=== PATIENT | male | born 1940 | race Caucasian/White ===

== ENCOUNTER 2017-03-06 21:59 | Emergency (ER) | payer MEDICARE, MEDICAID ==
[~2017-03-06] VITALS: Ht 180.3 cm; Wt 110.2 kg
[~2017-03-06 21:59] MED LIST: AMLO10TA2 PO; ASPI81CH43 PO; CARV3.1213 OR; CLOP75TA41 PO; FENO134C PO; HYDR25TA4 PO; LOSA25TA9 PO; LOVA40TA72 PO; OMEP20TA44 PO
[2017-03-07 00:48] VITALS: BP 183/96
[2017-03-07] MEDS ORDERED: GENTAMICIN OPTH sol 0.3% 5ml LEFTEYE ONE (01:00)
[2017-03-07] MEDS ORDERED: TETRACAINE HCL 0.5% OPTH(EYE) SOLN 4ML EACHEYE ONE (01:00)
[2017-03-07] MEDS ORDERED: FLUORESCEIN SOD 1 MG TEST STRIP LEFTEYE ONE (01:00)
== END 2017-03-07 01:50 | disposition home or self-care (01) ==
LOC: ER 21:59
DX: T15.02XA Foreign body in cornea, left eye, initial encounter (principal); S05.02XA Injury of conjunctiva and corneal abrasion without foreign body, left eye, initial encounter; M77.52 Other enthesopathy of left foot and ankle; X58.XXXA Exposure to other specified factors, initial encounter; Y93.89 Activity, other specified; Y99.8 Other external cause status; Y92.89 Other specified places as the place of occurrence of the external cause
CPT/HCPCS: 73630

== ENCOUNTER 2017-04-21 20:25 | Emergency (ER) | payer MEDICARE, MEDICAID ==
[~2017-04-21] VITALS: Ht 180.3 cm; Wt 106.6 kg
[~2017-04-21 20:25] MED LIST changes: +CAR3125T OR; -CARV3.1213 OR
[2017-04-22 00:27] VITALS: BP 119/80
[2017-04-22] MEDS ORDERED: TETANUS-DIPTH-ACEL PERTUSSIS 0.5ML SYRG IM ONE (00:45)
[2017-04-22] MEDS ORDERED: cefTRIAXone SOD 1,000 MG VL IM ONE (00:45)
== END 2017-04-22 01:03 | disposition home or self-care (01) ==
LOC: ER 20:28
DX: S61.431A Puncture wound without foreign body of right hand, initial encounter (principal); L03.113 Cellulitis of right upper limb; I10 Essential (primary) hypertension; W22.8XXA Striking against or struck by other objects, initial encounter; Y93.89 Activity, other specified; Y99.8 Other external cause status; Y92.89 Other specified places as the place of occurrence of the external cause
CPT/HCPCS: 90471; 90715; 96372; 99284; J0696

== ENCOUNTER → 2018-06-04 | Outpatient (CLI) | payer MEDICARE, MEDICAID ==
[~2018-06-04] MED LIST changes: +IOHEXOL 350 MG/ML 100ML IJ ONE
[2018-06-04 11:50] VITALS: BP 159/94
[2018-06-04 12:45] VITALS: BP 161/78
[2018-06-04 16:50] LABS: Albumin 3.9 g/dL (3.4-5.0); BUN/Creatinine Ratio 21.7; Bilirubin, Total 0.9 mg/dL (0.2-1.0); Calcium 8.8 mg/dL (8.5-10.1); Total Protein 7.4 g/dL (6.4-8.2)
[2018-06-04 16:53] LABS: Free T4 (Free Thyroxine) 0.78 ng/dL (0.89-1.76); Prostate Specific Antigen 0.68 ng/mL (0.0-4.0)
[2018-06-04 17:03] LABS: Basophils # (auto) 0 uL; Basophils % (auto) 0.8 % (0.0-2.0); Eosinophils # (auto) 0.1 uL; Eosinophils % (auto) 2.3 % (0.0-7.0); Hematocrit 44.3 % (41.0-53.0); Hemoglobin 15.2 g/dL (13.5-17.5); Lymphocytes # (auto) 1.6 uL; Lymphocytes % (auto) 27.1 % (10.0-50.0); Mean Corpuscular Hemoglobin 31.3 pg (28.0-32.0); Mean Corpuscular Hgb Conc. 34.4 g/dL (32.0-36.0); Mean Corpuscular Volume 90.8 fL (80.0-100.0); Monocytes # (auto) 0.5 uL; Monocytes % (auto) 8.8 % (0.0-12.0); Neutrophils # (auto) 3.6 uL; Nucleated Red Blood Cells % 0.2 %; Platelet Count (auto) 158 10^3/uL (140-450); Red Blood Cells 4.88 10^6/uL (4.5-5.90); Red Cell Distribution Width 14.1 % (11.8-14.3); White Blood Cell 5.9 10^3/uL (4.4-10.8)
== END | disposition home or self-care (01) ==
LOC: Rad HDHVI 11:38
PROVIDERS: ATTEND Internal Medicine Cardiovascular Disease
DX: Z00.01 Encounter for general adult medical examination with abnormal findings (principal); I51.7 Cardiomegaly; E29.1 Testicular hypofunction; C61 Malignant neoplasm of prostate; E03.9 Hypothyroidism, unspecified; E11.9 Type 2 diabetes mellitus without complications; E55.9 Vitamin D deficiency, unspecified; D51.9 Vitamin B12 deficiency anemia, unspecified; N39.0 Urinary tract infection, site not specified; Z79.82 Long term (current) use of aspirin; Z79.899 Other long term (current) drug therapy
CPT/HCPCS: 36415; 71260; 80053; 80061; 82306; 82565; 82607; 83036; 84153; 84403; 84439; 84443; 85025; G0463; Q9967

== ENCOUNTER → 2018-06-18 | Outpatient (CLI) | payer MEDICARE, MEDICAID ==
[~2018-06-18] MED LIST changes: +AMLO10TA12 PO; -AMLO10TA2 PO; -IOHEXOL 350 MG/ML 100ML IJ ONE; +LOSA25TA40 PO; -LOSA25TA9 PO
== END | disposition home or self-care (01) ==
LOC: Rad HDHVI 10:04
PROVIDERS: ATTEND Internal Medicine Cardiovascular Disease
DX: I35.1 Nonrheumatic aortic (valve) insufficiency (principal); I10 Essential (primary) hypertension; E11.9 Type 2 diabetes mellitus without complications; E78.00 Pure hypercholesterolemia, unspecified
CPT/HCPCS: 93306; 93880

== ENCOUNTER → 2018-06-27 | Outpatient (CLI) | payer MEDICARE, MEDICAID ==
[~2018-06-27] VITALS: Ht 180.3 cm; Wt 108.0 kg
[~2018-06-27] MED LIST changes: -AMLO10TA12 PO; +AMLO10TA2 PO; -LOSA25TA40 PO; +LOSA25TA9 PO
== END | disposition home or self-care (01) ==
LOC: Rad HDHVI 08:20
PROVIDERS: ATTEND Internal Medicine Cardiovascular Disease
DX: E78.00 Pure hypercholesterolemia, unspecified (principal); I12.9 Hypertensive chronic kidney disease with stage 1 through stage 4 chronic kidney disease, or unspecified chronic kidney disease; E11.22 Type 2 diabetes mellitus with diabetic chronic kidney disease; N18.2 Chronic kidney disease, stage 2 (mild); E78.5 Hyperlipidemia, unspecified; Z79.899 Other long term (current) drug therapy; Z79.82 Long term (current) use of aspirin
CPT/HCPCS: 78452; 93017; 96374; A9500

== ENCOUNTER → 2019-01-26 | Outpatient (CLI) | payer MEDICARE, MEDICAID ==
[~2019-01-26] MED LIST changes: +AMLO10TA12 PO; -AMLO10TA2 PO; +LOSA25TA40 PO; -LOSA25TA9 PO
[2019-01-26 12:12] LABS: Urine Blood Negative /uL (Negative); Urine Specific Gravity 1.012 (1.001-1.035)
[2019-01-26 12:28] LABS: Potassium 4.5 mmol/L (3.5-5.1)
[2019-01-26 12:36] LABS: Free T4 (Free Thyroxine) 0.93 ng/dL (0.89-1.76); Prostate Specific Antigen 0.62 ng/mL (0.0-4.0)
[2019-01-26 12:41] LABS: Albumin 3.5 g/dL (3.4-5.0); BUN/Creatinine Ratio 21.3; Bilirubin, Total 0.4 mg/dL (0.2-1.0); Calcium 9.1 mg/dL (8.5-10.1); Total Protein 7.1 g/dL (6.4-8.2)
[2019-01-26 13:15] LABS: Basophils # (auto) 0.1 uL; Eosinophils # (auto) 0.1 uL; Eosinophils % (auto) 2.8 % (0.0-7.0); Hematocrit 41.8 % (41.0-53.0); Hemoglobin 14.3 g/dL (13.5-17.5); Lymphocytes # (auto) 1.3 uL; Lymphocytes % (auto) 25.9 % (10.0-50.0); Mean Corpuscular Hemoglobin 29.9 pg (28.0-32.0); Mean Corpuscular Hgb Conc. 34.2 g/dL (32.0-36.0); Mean Corpuscular Volume 87.4 fL (80.0-100.0); Monocytes # (auto) 0.4 uL; Monocytes % (auto) 7.6 % (0.0-12.0); Neutrophils # (auto) 3.2 uL; Neutrophils % (auto) 62.7 % (37.0-80.0); Nucleated Red Blood Cells % 0.8 %; Platelet Count (auto) 192 10^3/uL (140-450); Red Blood Cells 4.78 10^6/uL (4.5-5.90); Red Cell Distribution Width 13.6 % (11.8-14.3)
== END | disposition home or self-care (01) ==
LOC: LAB 08:08
PROVIDERS: ATTEND Internal Medicine Cardiovascular Disease
DX: E55.9 Vitamin D deficiency, unspecified (principal); E03.9 Hypothyroidism, unspecified; E11.9 Type 2 diabetes mellitus without complications; E29.1 Testicular hypofunction; D51.9 Vitamin B12 deficiency anemia, unspecified; N39.0 Urinary tract infection, site not specified; C61 Malignant neoplasm of prostate
CPT/HCPCS: 36415; 80053; 80061; 81003; 82306; 82607; 83036; 84153; 84403; 84439; 84443; 85025

== ENCOUNTER → 2019-04-28 | Outpatient (CLI) | payer MEDICARE, MEDICAID | END | disposition home or self-care (01) | LOC: LAB 10:30 | PROVIDERS: ATTEND Internal Medicine Cardiovascular Disease | DX: E11.9 Type 2 diabetes mellitus without complications (principal) | CPT/HCPCS: 36415; 83036 ==

== ENCOUNTER → 2019-08-12 | Outpatient (CLI) | payer MEDICARE, MEDICAID ==
[~2019-08-12] MED LIST changes: -AMLO10TA12 PO; +AMLO10TA13 PO; +LOSA25TA38 PO; -LOSA25TA40 PO
== END | disposition home or self-care (01) ==
LOC: Rad HDHVI 14:58
PROVIDERS: ATTEND Internal Medicine Cardiovascular Disease
DX: I08.0 Rheumatic disorders of both mitral and aortic valves (principal); I42.1 Obstructive hypertrophic cardiomyopathy; I11.9 Hypertensive heart disease without heart failure
CPT/HCPCS: 93306

== ENCOUNTER → 2019-08-19 | Outpatient (CLI) | payer MEDICARE, MEDICAID ==
[~2019-08-19] VITALS: Ht 175.3 cm; Wt 115.7 kg
[~2019-08-19] MED LIST changes: +ADENOSINE 90 MG/30 ML INJ IV ONE; +ADENOSINE 97 MG in GIVE UN-DILUTED 0 ML IV ONE
== END | disposition home or self-care (01) ==
LOC: Rad HDHVI 13:19
PROVIDERS: ATTEND Internal Medicine Cardiovascular Disease
DX: I10 Essential (primary) hypertension (principal); E11.9 Type 2 diabetes mellitus without complications
CPT/HCPCS: 78452; 93005; 96374; 96375; A9500; J0153

== ENCOUNTER → 2020-02-19 | Outpatient (CLI) | payer MEDICARE, MEDICAID ==
[~2020-02-19] MED LIST changes: -ADENOSINE 90 MG/30 ML INJ IV ONE; -ADENOSINE 97 MG in GIVE UN-DILUTED 0 ML IV ONE
== END | disposition home or self-care (01) ==
LOC: Rad HDHVI 12:32
PROVIDERS: ATTEND Internal Medicine Cardiovascular Disease
DX: M47.816 Spondylosis without myelopathy or radiculopathy, lumbar region (principal); M47.817 Spondylosis without myelopathy or radiculopathy, lumbosacral region; M48.061 Spinal stenosis, lumbar region without neurogenic claudication; M43.16 Spondylolisthesis, lumbar region; M48.07 Spinal stenosis, lumbosacral region; K57.30 Diverticulosis of large intestine without perforation or abscess without bleeding; N40.0 Benign prostatic hyperplasia without lower urinary tract symptoms; M16.0 Bilateral primary osteoarthritis of hip
CPT/HCPCS: 72131; 72192

== ENCOUNTER → 2020-04-11 | Outpatient (CLI) | payer MEDICARE, MEDICAID ==
[~2020-04-11] MED LIST changes: +METF-370 PO; +POM PO; +SITA100T7 PO
[2020-04-11 09:45] VITALS: BP 125/77
--- NOTE | 2020-04-11 09:45 | NUR ---
PATIENT INTO CLINIC FOR SCHEDULED PREOP APPT, AAOx4, AMBULATORY, BREATHING EVEN AND UNLABORED.
[2020-04-11 10:12] VITALS: BP 138/69
--- NOTE | 2020-04-11 10:12 | NUR ---
Pre-Op Discharge Summary: See e-MAR for any medications given for this visit. Pre-op orders received and carried out per MD of EKG, LABS and chest xrays. Patient given a copy of EKG with instructions to go to [facility] out patient for further follow up care.
[2020-04-11 12:20] LABS: Urine Blood Negative /uL (Negative); Urine Specific Gravity 1.019 (1.001-1.035)
[2020-04-11 12:22] LABS: Basophils # (auto) 0 10 ^3/uL (0-0.2); Mean Corpuscular Hemoglobin 35.1 pg (28.0-32.0); Monocytes # (auto) 0.5 10 ^3/uL (0-1.3); Neutrophils # (auto) 3.4 10 ^3/uL (1.6-8.6); White Blood Cell 5.6 10^3/uL (4.4-10.8)
[2020-04-11 12:24] LABS: Basophils % (auto) 0.6 % (0.0-2.0); Eosinophils # (auto) 0.2 10 ^3/uL (0-0.8); Eosinophils % (auto) 2.7 % (0.0-7.0); Hematocrit 40.8 % (41.0-53.0); Hemoglobin 14.7 g/dL (13.5-17.5); Lymphocytes # (auto) 1.5 10 ^3/uL (0.4-5.4); Lymphocytes % (auto) 27.2 % (10.0-50.0); Mean Corpuscular Volume 97.4 fL (80.0-100.0); Monocytes % (auto) 8.4 % (0.0-12.0); Neutrophils % (auto) 61.1 % (37.0-80.0); Nucleated Red Blood Cells % 0.4 %; Platelet Count (auto) 198 10^3/uL (140-450); Red Blood Cells 4.19 10^6/uL (4.5-5.90); Red Cell Distribution Width 14.6 % (11.8-14.3)
[2020-04-11 12:32] LABS: INR 0.98 (0.9-1.15); Partial Thromboplastin Time 25.3 sec (23.64-32.05)
[2020-04-11 12:40] LABS: Free T4 (Free Thyroxine) 0.99 ng/dL (0.89-1.76); Prostate Specific Antigen 0.83 ng/mL (0.0-4.0)
[2020-04-11 12:41] LABS: Potassium 4.5 mmol/L (3.5-5.1)
[2020-04-11 13:07] LABS: Albumin 3.8 g/dL (3.4-5.0); BUN/Creatinine Ratio 19.4; Bilirubin, Total 0.7 mg/dL (0.2-1.0); Calcium 9.5 mg/dL (8.5-10.1); Total Protein 7.3 g/dL (6.4-8.2)
== END | disposition home or self-care (01) ==
LOC: Rad HDHVI 09:22
PROVIDERS: ATTEND Internal Medicine Cardiovascular Disease
DX: Z01.818 Encounter for other preprocedural examination (principal); I70.0 Atherosclerosis of aorta; I11.0 Hypertensive heart disease with heart failure; I50.9 Heart failure, unspecified; M25.551 Pain in right hip; N40.0 Benign prostatic hyperplasia without lower urinary tract symptoms
CPT/HCPCS: 36415; 71046; 80053; 80061; 81003; 82306; 82607; 83036; 84153; 84403; 84439; 84443; 85025; 85610; 85730; 93005; G0463

== ENCOUNTER → 2020-04-12 | Emergency (ER) | payer MEDICARE, MEDICAID ==
[~2020-04-12] VITALS: Ht 180.3 cm; Wt 99.3 kg
[~2020-04-12] MED LIST changes: -AMLO10TA13 PO; -ASPI81CH43 PO; -CAR3125T OR; -CLOP75TA41 PO; -FENO134C PO; -HYDR25TA4 PO; +IOHEXOL 350 MG/ML 100ML IJ ONE; -LOSA25TA38 PO; -LOVA40TA72 PO; +MORPHINE SULF INJ 2 MG/ML SYRINGE 1ML ONE; +MORPHINE SULFATE 4 MG/ML SYR/VIAL IV ONE; -OMEP20TA44 PO; +ONDANSETRON HCL 4 MG/2 ML VIAL IV ONE; +ONDANSETRON HCL 4 MG/2 ML VIAL ONE; +SODIUM CHLORIDE 0.9% 1,000 ML IV ONE
[2020-04-12 19:57] LABS: Basophils # (auto) 0 10 ^3/uL (0-0.2); Basophils % (auto) 0.5 % (0.0-2.0); Eosinophils # (auto) 0.1 10 ^3/uL (0-0.8); Eosinophils % (auto) 1.5 % (0.0-7.0); Hematocrit 43.9 % (41.0-53.0); Lymphocytes # (auto) 1.7 10 ^3/uL (0.4-5.4); Lymphocytes % (auto) 21.5 % (10.0-50.0); Mean Corpuscular Hemoglobin 30.9 pg (28.0-32.0); Mean Corpuscular Hgb Conc. 34.3 g/dL (32.0-36.0); Mean Corpuscular Volume 90.1 fL (80.0-100.0); Monocytes # (auto) 0.7 10 ^3/uL (0-1.3); Monocytes % (auto) 8.6 % (0.0-12.0); Neutrophils # (auto) 5.5 10 ^3/uL (1.6-8.6); Neutrophils % (auto) 67.9 % (37.0-80.0); Nucleated Red Blood Cells % 0.1 %; Platelet Count (auto) 180 10^3/uL (140-450); Red Blood Cells 4.87 10^6/uL (4.5-5.90); Red Cell Distribution Width 14.8 % (11.8-14.3); White Blood Cell 8.1 10^3/uL (4.4-10.8)
[2020-04-12 20:12] LABS: INR 1.03 (0.9-1.15)
[2020-04-12 20:15] LABS: Albumin 3.8 g/dL (3.4-5.0); Anion Gap 8 (5-15); Blood Urea Nitrogen 31 mg/dL (7-18); Calcium 8.7 mg/dL (8.5-10.1); Carbon Dioxide 22 mmol/L (21-32); Chloride 115 mmol/L (98-107); Glucose 154 mg/dL (74-106); Magnesium 2.2 mg/dL (1.6-2.6); Potassium 4.2 mmol/L (3.5-5.1); Sodium 145 mmol/L (136-145)
[2020-04-12 20:17] LABS: Alanine Aminotransferase 44 U/L (16-61); Aspartate Aminotransferase 29 U/L (15-37); BUN/Creatinine Ratio 23.7; GFR African American 68 mL/min; GFR Non-African American 56 mL/min
[2020-04-12 20:22] LABS: Alkaline Phosphatase 89 U/L (45-117); Bilirubin, Total 0.4 mg/dL (0.2-1.0); Total Protein 7.2 g/dL (6.4-8.2)
[2020-04-12 23:54] VITALS: BP 146/76
== END | disposition short-term general hospital (02) ==
LOC: EDUNIT# 19:25 → ER 19:30 → EDBD 19:30
DX: S12.200A Unspecified displaced fracture of third cervical vertebra, initial encounter for closed fracture (principal); E11.9 Type 2 diabetes mellitus without complications; I10 Essential (primary) hypertension; I25.2 Old myocardial infarction; X58.XXXA Exposure to other specified factors, initial encounter; Y93.89 Activity, other specified; Y92.89 Other specified places as the place of occurrence of the external cause; Y99.8 Other external cause status
CPT/HCPCS: 36415; 70450; 71250; 71275; 72125; 80053; 83735; 83880; 84443; 84484; 85025; 85379; 85610; 85730; 93971; 96361; 96374; 96375; 96376; 99285; J2270; J2405; J7030; Q9967; 93005

== ENCOUNTER → 2020-04-25 | Outpatient (CLI) | payer MEDICARE, MEDICAID ==
[~2020-04-25] MED LIST changes: -IOHEXOL 350 MG/ML 100ML IJ ONE; -MORPHINE SULF INJ 2 MG/ML SYRINGE 1ML ONE; -MORPHINE SULFATE 4 MG/ML SYR/VIAL IV ONE; -ONDANSETRON HCL 4 MG/2 ML VIAL IV ONE; -ONDANSETRON HCL 4 MG/2 ML VIAL ONE; -SODIUM CHLORIDE 0.9% 1,000 ML IV ONE
== END | disposition home or self-care (01) ==
LOC: Rad HDHVI 13:56
PROVIDERS: ATTEND Internal Medicine Cardiovascular Disease
DX: I50.42 Chronic combined systolic (congestive) and diastolic (congestive) heart failure (principal); R06.02 Shortness of breath
CPT/HCPCS: 93306

== ENCOUNTER → 2020-05-09 | Outpatient (CLI) | payer MEDICARE, MEDICAID ==
[~2020-05-09] VITALS: Ht 182.9 cm; Wt 97.5 kg
[2020-05-09 08:40] VITALS: BP 137/65
[2020-05-09 10:07] VITALS: BP 136/73
[2020-05-09 11:57] LABS: Basophils # (auto) 0 10 ^3/uL (0-0.2); Basophils % (auto) 0.7 % (0.0-2.0); Eosinophils # (auto) 0.1 10 ^3/uL (0-0.8); Eosinophils % (auto) 2.6 % (0.0-7.0); Hematocrit 33.8 % (41.0-53.0); Hemoglobin 13.6 g/dL (13.5-17.5); Lymphocytes % (auto) 26.9 % (10.0-50.0); Mean Corpuscular Hemoglobin 41.7 pg (28.0-32.0); Mean Corpuscular Volume 103.5 fL (80.0-100.0); Monocytes # (auto) 0.4 10 ^3/uL (0-1.3); Monocytes % (auto) 10.7 % (0.0-12.0); Neutrophils # (auto) 2.2 10 ^3/uL (1.6-8.6); Neutrophils % (auto) 59.1 % (37.0-80.0); Nucleated Red Blood Cells % 0.2 %; Platelet Count (auto) 163 10^3/uL (140-450); Red Blood Cells 3.26 10^6/uL (4.5-5.90); Red Cell Distribution Width 14.5 % (11.8-14.3); White Blood Cell 3.7 10^3/uL (4.4-10.8)
[2020-05-09 11:59] LABS: Mean Corpuscular Hgb Conc. 40.3 g/dL (32.0-36.0)
[2020-05-09 12:06] LABS: BUN/Creatinine Ratio 21.7; Calcium 9.1 mg/dL (8.5-10.1); Potassium 4.8 mmol/L (3.5-5.1)
[2020-05-09 12:17] LABS: INR 1.02 (0.9-1.15); Partial Thromboplastin Time 25.8 sec (23.64-32.05)
== END | disposition home or self-care (01) ==
LOC: Rad HDHVI 09:14
PROVIDERS: ATTEND Internal Medicine Cardiovascular Disease
DX: Z01.812 Encounter for preprocedural laboratory examination (principal); I10 Essential (primary) hypertension; D64.9 Anemia, unspecified; R79.1 Abnormal coagulation profile; I51.7 Cardiomegaly; I70.0 Atherosclerosis of aorta; J98.11 Atelectasis; M25.78 Osteophyte, vertebrae; M47.814 Spondylosis without myelopathy or radiculopathy, thoracic region
CPT/HCPCS: 36415; 71046; 80048; 85025; 85610; 85730; 93005; G0463

== ENCOUNTER 2020-05-12 07:16 | Day surgery (SDC) | payer MEDICARE, MEDICAID ==
[~2020-05-12 07:16] MED LIST changes: -SITA100T7 PO
[2020-05-12] MEDS ORDERED: ANGIOMAX 250 MG VIAL IV ONE (09:29)
[2020-05-12] MEDS ORDERED: fentaNYL CITRATE 100 MCG/2 ML VL ONE (09:29)
[2020-05-12] MEDS ORDERED: MIDAZOLAM HCL 1MG/1ML-2 ML VIAL ONE (09:29)
[2020-05-12] MEDS ORDERED: SODIUM CHL 0.9% 0 ML ONE (09:30)
[2020-05-12] MEDS ORDERED: LIDOCAINE 2%HCL (LOCAL ANESTH.) INJ 20ML MDV ONE (09:41)
[2020-05-12] MEDS ORDERED: IOHEXOL 350 MG/ML 100ML IJ ONE (09:41)
[2020-05-12] MEDS ORDERED: HYDROcodone-ACET 5/325MG TAB PO PRN (11:15)
[2020-05-12] MEDS ORDERED: ONDANSETRON HCL 4 MG/2 ML VIAL IV PRN (11:15)
[2020-05-12] MEDS ORDERED: ACETAMINOPHEN 500 MG TAB PO PRN (11:15)
== END 2020-05-12 12:32 | disposition home or self-care (01) ==
LOC: CATH 07:16
PROVIDERS: ATTEND Internal Medicine Cardiovascular Disease
DX: R06.02 Shortness of breath (principal); I25.10 Atherosclerotic heart disease of native coronary artery without angina pectoris; E11.9 Type 2 diabetes mellitus without complications; I10 Essential (primary) hypertension; E78.5 Hyperlipidemia, unspecified; I25.2 Old myocardial infarction; M19.90 Unspecified osteoarthritis, unspecified site; E34.9 Endocrine disorder, unspecified; Z11.59 Encounter for screening for other viral diseases
CPT/HCPCS: 93458; C1760; C1894; J1644; J2250; J3010; J7030; Q9967; U0003; 99152

== ENCOUNTER → 2020-06-10 | Outpatient (CLI) | payer MEDICARE, MEDICAID ==
[2020-06-10 11:24] LABS: Hemoglobin 13.7 g/dL (13.5-17.5); Nucleated Red Blood Cells % 0.1 %
[2020-06-10 11:26] LABS: Basophils # (auto) 0 10 ^3/uL (0-0.2); Basophils % (auto) 0.8 % (0.0-2.0); Eosinophils # (auto) 0.1 10 ^3/uL (0-0.8); Eosinophils % (auto) 2.4 % (0.0-7.0); Hematocrit 38.3 % (41.0-53.0); Lymphocytes # (auto) 1.5 10 ^3/uL (0.4-5.4); Lymphocytes % (auto) 29.2 % (10.0-50.0); Mean Corpuscular Hemoglobin 35.3 pg (28.0-32.0); Mean Corpuscular Hgb Conc. 35.8 g/dL (32.0-36.0); Mean Corpuscular Volume 98.6 fL (80.0-100.0); Monocytes # (auto) 0.5 10 ^3/uL (0-1.3); Neutrophils # (auto) 2.9 10 ^3/uL (1.6-8.6); Neutrophils % (auto) 57.6 % (37.0-80.0); Platelet Count (auto) 150 10^3/uL (140-450); Red Blood Cells 3.88 10^6/uL (4.5-5.90); White Blood Cell 5.1 10^3/uL (4.4-10.8)
[2020-06-10 12:24] LABS: Potassium 4.3 mmol/L (3.5-5.1)
[2020-06-10 13:04] LABS: Albumin 3.7 g/dL (3.4-5.0); Bilirubin, Direct 0.2 mg/dL (0-0.2); Bilirubin, Total 0.6 mg/dL (0.2-1.0); Calcium 9.1 mg/dL (8.5-10.1); Total Protein 6.8 g/dL (6.4-8.2)
== END | disposition home or self-care (01) ==
LOC: LAB 10:57
PROVIDERS: ATTEND Internal Medicine Cardiovascular Disease
DX: C61 Malignant neoplasm of prostate (principal); K90.9 Intestinal malabsorption, unspecified; E03.9 Hypothyroidism, unspecified; Z00.00 Encounter for general adult medical examination without abnormal findings; E29.1 Testicular hypofunction; N39.0 Urinary tract infection, site not specified; D51.9 Vitamin B12 deficiency anemia, unspecified; Z79.899 Other long term (current) drug therapy
CPT/HCPCS: 36415; 80048; 80061; 80076; 82306; 83036; 84153; 84403; 84443; 85025

== ENCOUNTER → 2020-08-10 | Outpatient (CLI) | payer MEDICARE, MEDICAID | END | disposition home or self-care (01) | LOC: Rad HDHVI 10:40 | PROVIDERS: ATTEND Internal Medicine Cardiovascular Disease | DX: I67.82 Cerebral ischemia (principal); G31.89 Other specified degenerative diseases of nervous system; I63.9 Cerebral infarction, unspecified | CPT/HCPCS: 70450 ==

== ENCOUNTER → 2020-08-12 | Outpatient (CLI) | payer MEDICARE, MEDICAID | END | disposition home or self-care (01) | LOC: Rad HDHVI 09:57 | PROVIDERS: ATTEND Internal Medicine Cardiovascular Disease | DX: I71.2 Thoracic aortic aneurysm, without rupture (principal); I50.42 Chronic combined systolic (congestive) and diastolic (congestive) heart failure; R07.89 Other chest pain; I35.1 Nonrheumatic aortic (valve) insufficiency | CPT/HCPCS: 93306 ==

== ENCOUNTER → 2020-09-05 | Outpatient (CLI) | payer MEDICARE, MEDICAID ==
[2020-09-05 12:05] VITALS: BP 157/64
--- NOTE | 2020-09-05 12:05 | NUR ---
Signature Attestation Statement: I SALOMON DHILLON performed this procedure EECP on this patient. Addendum: 09/05/20 at 1206 by SALOMON DHILLON HDHI2 Amended: Links added.
--- NOTE | 2020-09-05 12:06 | NUR ---
Signature Attestation Statement: I SALOMON DHILLON performed this procedure EECP on this patient. Addendum: 09/05/20 at 1207 by SALOMON DHILLON HDHI2 Amended: Links added.
[2020-09-05 12:43] VITALS: BP 153/78
--- NOTE | 2020-09-05 12:43 | NUR ---
Signature Attestation Statement: I SALOMON DHILLON performed this procedure EECP on this patient. Addendum: 09/05/20 at 1243 by SALOMON DHILLON HDHI2 Amended: Links added.
--- NOTE | 2020-09-05 12:51 | NUR ---
Signature Attestation Statement: I SALOMON DHILLON performed this procedure EECP on this patient. Addendum: 09/05/20 at 1252 by SALOMON DHILLON HDHI2 Amended: Links added.
== END | disposition home or self-care (01) ==
LOC: CHF HDHVI 11:24
PROVIDERS: ATTEND Internal Medicine Cardiovascular Disease
DX: I25.118 Atherosclerotic heart disease of native coronary artery with other forms of angina pectoris (principal); I25.5 Ischemic cardiomyopathy; I11.0 Hypertensive heart disease with heart failure; I50.23 Acute on chronic systolic (congestive) heart failure; E78.5 Hyperlipidemia, unspecified; I73.9 Peripheral vascular disease, unspecified
CPT/HCPCS: G0166

== ENCOUNTER → 2020-09-06 | Outpatient (CLI) | payer MEDICARE, MEDICAID ==
[2020-09-06 14:42] VITALS: BP 151/72
--- NOTE | 2020-09-06 14:43 | NUR ---
Signature Attestation Statement: I SALOMON DHILLON performed this procedure EECP on this patient. Addendum: 09/06/20 at 1443 by SALOMON DHILLON HDHI2 Amended: Links added.
--- NOTE | 2020-09-06 14:44 | NUR ---
Signature Attestation Statement: I SALOMON DHILLON performed this procedure EECP on this patient. Addendum: 09/06/20 at 1444 by SALOMON DHILLON HDHI2 Amended: Links added.
[2020-09-06 14:47] VITALS: BP 154/77
--- NOTE | 2020-09-06 14:47 | NUR ---
Signature Attestation Statement: I SALOMON DHILLON performed this procedure EECP on this patient. Addendum: 09/06/20 at 1447 by SALOMON DHILLON HDHI2 Amended: Links added.
--- NOTE | 2020-09-06 14:48 | NUR ---
Signature Attestation Statement: I SALOMON DHILLON performed this procedure EECP on this patient. Addendum: 09/06/20 at 1448 by SALOMON DHILLON HDHI2 Amended: Links added.
== END | disposition home or self-care (01) ==
LOC: CHF HDHVI 11:23
PROVIDERS: ATTEND Internal Medicine Cardiovascular Disease
DX: I25.118 Atherosclerotic heart disease of native coronary artery with other forms of angina pectoris (principal); I25.5 Ischemic cardiomyopathy; I11.0 Hypertensive heart disease with heart failure; I50.23 Acute on chronic systolic (congestive) heart failure; E78.5 Hyperlipidemia, unspecified; I73.9 Peripheral vascular disease, unspecified
CPT/HCPCS: G0166

== ENCOUNTER → 2020-09-07 | Outpatient (CLI) | payer MEDICARE, MEDICAID ==
[2020-09-07 08:30] VITALS: BP 184/85
--- NOTE | 2020-09-07 08:30 | NUR ---
PT. IN EECP FOR THIRD DAY OF TX. V.O. RECEIVED FROM DR. SHEPARD FOR PT. TO START TAKING L-ARGININE 4 GMS PO 30 MIN. PRIOR TO TX. SAMPLES GIVEN TO PT. WHO WAS INSTRUCTED TO HAVE HIS CALL THIS RN D/T LANGUAGE BARRIER. Nikko LATIF WILL ALSO ASSIST IN FOLLOW UP.
[2020-09-07 08:59] VITALS: BP 184/85
--- NOTE | 2020-09-07 09:00 | NUR ---
Signature Attestation Statement: I SALOMON DHILLON performed this procedure EECP on this patient. Addendum: 09/07/20 at 0901 by SALOMON DHILLON HDHI2 Amended: Links added.
--- NOTE | 2020-09-07 09:00 | NUR ---
Signature Attestation Statement: I SALOMON DHILLON performed this procedure EECP on this patient. Addendum: 09/07/20 at 0900 by SALOMON DHILLON HDHI2 Amended: Links added.
--- NOTE | 2020-09-07 09:01 | NUR ---
Signature Attestation Statement: I SALOMON DHILLON performed this procedure EECP on this patient. Addendum: 09/07/20 at 0902 by SALOMON DHILLON HDHI2 Amended: Links added.
[2020-09-07 09:30] VITALS: BP 162/93
[2020-09-07 09:49] VITALS: BP 162/73
--- NOTE | 2020-09-07 09:49 | NUR ---
Signature Attestation Statement: I SALOMON DHILLON performed this procedure EECP on this patient. Addendum: 09/07/20 at 0949 by SALOMON DHILLON HDHI2 Amended: Links added.
--- NOTE | 2020-09-07 10:16 | NUR ---
Signature Attestation Statement: I SALOMON DHILLON performed this procedure EECP on this patient. Addendum: 09/07/20 at 1017 by SALOMON DHILLON HDHI2 Amended: Links added.
== END | disposition home or self-care (01) ==
LOC: CHF HDHVI 08:23
PROVIDERS: ATTEND Internal Medicine Cardiovascular Disease
DX: I25.118 Atherosclerotic heart disease of native coronary artery with other forms of angina pectoris (principal); I25.5 Ischemic cardiomyopathy; I11.0 Hypertensive heart disease with heart failure; I50.23 Acute on chronic systolic (congestive) heart failure; E78.5 Hyperlipidemia, unspecified; I73.9 Peripheral vascular disease, unspecified; Z95.5 Presence of coronary angioplasty implant and graft
CPT/HCPCS: G0166; G0463

== ENCOUNTER → 2020-09-08 | Outpatient (CLI) | payer MEDICARE, MEDICAID ==
[2020-09-08 08:59] VITALS: BP 182/71
--- NOTE | 2020-09-08 08:59 | NUR ---
Signature Attestation Statement: I SALOMON DHILLON performed this procedure EECP on this patient. Addendum: 09/08/20 at 0900 by SALOMON DHILLON HDHI2 Amended: Links added.
--- NOTE | 2020-09-08 09:01 | NUR ---
Signature Attestation Statement: I SALOMON DHILLON performed this procedure EECP on this patient. Addendum: 09/08/20 at 0901 by SALOMON DHILLON HDHI2 Amended: Links added.
--- NOTE | 2020-09-08 09:51 | NUR ---
Signature Attestation Statement: I SALOMON DHILLON performed this procedure EECP on this patient. Addendum: 09/08/20 at 0952 by SALOMON DHILLON HDHI2 Amended: Links added.
[2020-09-08 09:52] VITALS: BP 169/78
--- NOTE | 2020-09-08 09:52 | NUR ---
Signature Attestation Statement: I SALOMON DHILLON performed this procedure EECP on this patient. Addendum: 09/08/20 at 0953 by SALOMON DHILLON HDHI2 Amended: Links added.
== END | disposition home or self-care (01) ==
LOC: CHF HDHVI 08:27
PROVIDERS: ATTEND Internal Medicine Cardiovascular Disease
DX: I25.118 Atherosclerotic heart disease of native coronary artery with other forms of angina pectoris (principal); I25.5 Ischemic cardiomyopathy; I11.0 Hypertensive heart disease with heart failure; I50.23 Acute on chronic systolic (congestive) heart failure; E78.5 Hyperlipidemia, unspecified; I73.9 Peripheral vascular disease, unspecified
CPT/HCPCS: G0166

== ENCOUNTER → 2020-09-09 | Outpatient (CLI) | payer MEDICARE, MEDICAID ==
[2020-09-09 09:00] VITALS: BP 177/76
[2020-09-09 09:34] VITALS: BP 164/87
== END | disposition home or self-care (01) ==
LOC: CHF HDHVI 08:28
PROVIDERS: ATTEND Internal Medicine Cardiovascular Disease
DX: I25.118 Atherosclerotic heart disease of native coronary artery with other forms of angina pectoris (principal); I25.5 Ischemic cardiomyopathy; I11.0 Hypertensive heart disease with heart failure; I50.23 Acute on chronic systolic (congestive) heart failure; E78.5 Hyperlipidemia, unspecified; I73.9 Peripheral vascular disease, unspecified
CPT/HCPCS: G0166

== ENCOUNTER → 2020-09-20 | Outpatient (CLI) | payer MEDICARE, MEDICAID ==
[2020-09-20 09:07] VITALS: BP 173/79
--- NOTE | 2020-09-20 09:07 | NUR ---
Signature Attestation Statement: I SALOMON DHILLON performed this procedure EECP on this patient. Addendum: 09/20/20 at 0908 by SALOMON DHILLON HDHI2 Amended: Links added.
--- NOTE | 2020-09-20 09:09 | NUR ---
Signature Attestation Statement: I SALOMON DHILLON performed this procedure EECP on this patient. Addendum: 09/20/20 at 0910 by SALOMON DHILLON HDHI2 Amended: Links added.
[2020-09-20 09:40] VITALS: BP 176/87
--- NOTE | 2020-09-20 09:40 | NUR ---
Signature Attestation Statement: I SALOMON DHILLON performed this procedure EECP on this patient. Addendum: 09/20/20 at 0940 by SALOMON DHILLON HDHI2 Amended: Links added.
--- NOTE | 2020-09-20 09:54 | NUR ---
Signature Attestation Statement: I SALOMON DHILLON performed this procedure EECP on this patient. Addendum: 09/20/20 at 0954 by SALOMON DHILLON HDHI2 Amended: Links added.
== END | disposition home or self-care (01) ==
LOC: CHF HDHVI 08:34
PROVIDERS: ATTEND Internal Medicine Cardiovascular Disease
DX: I25.118 Atherosclerotic heart disease of native coronary artery with other forms of angina pectoris (principal); I25.5 Ischemic cardiomyopathy; I11.0 Hypertensive heart disease with heart failure; I50.23 Acute on chronic systolic (congestive) heart failure; E78.5 Hyperlipidemia, unspecified; I73.9 Peripheral vascular disease, unspecified
CPT/HCPCS: G0166

== ENCOUNTER → 2020-09-26 | Outpatient (CLI) | payer MEDICARE, MEDICAID ==
[2020-09-26 09:32] VITALS: BP 170/78
--- NOTE | 2020-09-26 09:33 | NUR ---
Signature Attestation Statement: I SALOMON DHILLON performed this procedure EECP on this patient. Addendum: 09/26/20 at 0934 by SALOMON DHILLON HDHI2 Amended: Links added.
--- NOTE | 2020-09-26 09:33 | NUR ---
Signature Attestation Statement: I SALOMON DHILLON performed this procedure EECP on this patient. Addendum: 09/26/20 at 0933 by SALOMON DHILLON HDHI2 Amended: Links added.
--- NOTE | 2020-09-26 09:35 | NUR ---
Signature Attestation Statement: I ASLOMON DHILLON performed this procedure EECP on this patient. Addendum: 09/26/20 at 0935 by SALOMON DHILLON HDHI2 Amended: Links added.
[2020-09-26 09:52] VITALS: BP 166/78
--- NOTE | 2020-09-26 09:52 | NUR ---
Signature Attestation Statement: I SALOMON DHILLON performed this procedure EECP on this patient. Addendum: 09/26/20 at 0952 by SALOMON DHILLON HDHI2 Amended: Links added.
--- NOTE | 2020-09-26 10:00 | NUR ---
Signature Attestation Statement: I SALOMON DHILLON performed this procedure EECP on this patient. Addendum: 09/26/20 at 1000 by SALOMON DHILLON HDHI2 Amended: Links added.
== END | disposition home or self-care (01) ==
LOC: CHF HDHVI 08:47
PROVIDERS: ATTEND Internal Medicine Cardiovascular Disease
DX: I25.118 Atherosclerotic heart disease of native coronary artery with other forms of angina pectoris (principal); I25.5 Ischemic cardiomyopathy; I11.0 Hypertensive heart disease with heart failure; I50.23 Acute on chronic systolic (congestive) heart failure; E78.5 Hyperlipidemia, unspecified; I73.9 Peripheral vascular disease, unspecified
CPT/HCPCS: G0166

== ENCOUNTER → 2020-09-27 | Outpatient (CLI) | payer MEDICARE, MEDICAID ==
[2020-09-27 09:12] VITALS: BP 169/83
--- NOTE | 2020-09-27 09:12 | NUR ---
Signature Attestation Statement: I SALOMON DHILLON performed this procedure EECP on this patient. Addendum: 09/27/20 at 0913 by SALOMON DHILLON HDHI2 Amended: Links added.
--- NOTE | 2020-09-27 09:14 | NUR ---
Signature Attestation Statement: I SALOMON DHILLON performed this procedure EECP on this patient. Addendum: 09/27/20 at 0915 by SALOMON DHILLON HDHI2 Amended: Links added.
== END | disposition home or self-care (01) ==
LOC: CHF HDHVI 08:38
PROVIDERS: ATTEND Internal Medicine Cardiovascular Disease
DX: I25.118 Atherosclerotic heart disease of native coronary artery with other forms of angina pectoris (principal); I25.5 Ischemic cardiomyopathy; I11.0 Hypertensive heart disease with heart failure; I50.23 Acute on chronic systolic (congestive) heart failure; E78.5 Hyperlipidemia, unspecified; I73.9 Peripheral vascular disease, unspecified
CPT/HCPCS: G0166

== ENCOUNTER → 2020-09-28 | Outpatient (CLI) | payer MEDICARE, MEDICAID ==
[2020-09-28 08:59] VITALS: BP 172/81
--- NOTE | 2020-09-28 08:59 | NUR ---
Signature Attestation Statement: I SALOMON DHILLON performed this procedure EECP on this patient. Addendum: 09/28/20 at 0900 by SALOMON DHILLON HDHI2 Amended: Links added.
--- NOTE | 2020-09-28 09:00 | NUR ---
Signature Attestation Statement: I SALOMON DHILLON performed this procedure EECP on this patient. Addendum: 09/28/20 at 0901 by SALOMON DHILLON HDHI2 Amended: Links added.
[2020-09-28 16:46] VITALS: BP 160/83
--- NOTE | 2020-09-28 16:47 | NUR ---
Signature Attestation Statement: I SALOMON DHILLON performed this procedure EECP on this patient. Addendum: 09/28/20 at 1647 by SALOMON DHILLON HDHI2 Amended: Links added.
--- NOTE | 2020-09-28 16:51 | NUR ---
Signature Attestation Statement: I SALOMON DHILLON performed this procedure EECP on this patient. Addendum: 09/28/20 at 1651 by SALOMON DHILLON HDHI2 Amended: Links added.
== END | disposition home or self-care (01) ==
LOC: CHF HDHVI 08:19
PROVIDERS: ATTEND Internal Medicine Cardiovascular Disease
DX: I25.118 Atherosclerotic heart disease of native coronary artery with other forms of angina pectoris (principal); I25.5 Ischemic cardiomyopathy; I50.23 Acute on chronic systolic (congestive) heart failure; Z98.61 Coronary angioplasty status
CPT/HCPCS: G0166

== ENCOUNTER → 2020-10-24 | Outpatient (CLI) | payer MEDICARE, MEDICAID | END | disposition home or self-care (01) | LOC: Rad HDHVI 10:53 | PROVIDERS: ATTEND Internal Medicine Cardiovascular Disease | DX: M25.862 Other specified joint disorders, left knee (principal); M85.88 Other specified disorders of bone density and structure, other site; M25.562 Pain in left knee | CPT/HCPCS: 73562 ==

== ENCOUNTER → 2020-10-26 | Outpatient (CLI) | payer MEDICARE, MEDICAID ==
[~2020-10-26] MED LIST changes: +APIX2.5T PO; +ATOR20TA PO; +AZIL40TA3 PO; +CELE200C PO; +CLOTCRE3 TOP; +GABA300C PO; +HYDR-4072 PO
== END | disposition home or self-care (01) ==
LOC: Rad HDHVI 10:02
PROVIDERS: ATTEND Internal Medicine Cardiovascular Disease
DX: I73.9 Peripheral vascular disease, unspecified (principal); E78.5 Hyperlipidemia, unspecified
CPT/HCPCS: 93926

== ENCOUNTER → 2020-12-30 | Outpatient (CLI) | payer MEDICARE, MEDICAID ==
[2020-12-30 11:11] VITALS: BP 117/52
[2020-12-30 11:30] VITALS: BP 141/54
[2020-12-30 12:47] LABS: INR 1.01 (0.9-1.15); Partial Thromboplastin Time 25.1 sec (23.0-31.2)
[2020-12-30 13:07] LABS: BUN/Creatinine Ratio 39.3; Calcium 9.5 mg/dL (8.5-10.1)
[2020-12-30 13:17] LABS: Basophils # (auto) 0 10 ^3/uL (0-0.2); Basophils % (auto) 0.4 % (0.0-2.0); Eosinophils # (auto) 0 10 ^3/uL (0-0.8); Eosinophils % (auto) 0.6 % (0.0-7.0); Hematocrit 40.6 % (41.0-53.0); Hemoglobin 13.8 g/dL (13.5-17.5); Lymphocytes # (auto) 1.9 10 ^3/uL (0.4-5.4); Lymphocytes % (auto) 21.9 % (10.0-50.0); Mean Corpuscular Hemoglobin 30.7 pg (28.0-32.0); Mean Corpuscular Hgb Conc. 34.1 g/dL (32.0-36.0); Mean Corpuscular Volume 90.2 fL (80.0-100.0); Monocytes # (auto) 0.8 10 ^3/uL (0-1.3); Monocytes % (auto) 8.5 % (0.0-12.0); Neutrophils # (auto) 6.1 10 ^3/uL (1.6-8.6); Neutrophils % (auto) 68.6 % (37.0-80.0); Nucleated Red Blood Cells % 0.1 %; Platelet Count (auto) 178 10^3/uL (140-450); Red Cell Distribution Width 14.5 % (11.8-14.3); White Blood Cell 8.9 10^3/uL (4.4-10.8)
== END | disposition home or self-care (01) ==
LOC: Rad HDHVI 11:00
PROVIDERS: ATTEND Internal Medicine Cardiovascular Disease
DX: Z01.812 Encounter for preprocedural laboratory examination (principal); J98.11 Atelectasis; I70.0 Atherosclerosis of aorta; I51.7 Cardiomegaly; I50.23 Acute on chronic systolic (congestive) heart failure
CPT/HCPCS: 36415; 71046; 80048; 85025; 85610; 85730; 93005; G0463

== ENCOUNTER → 2021-01-05 | Day surgery (SDC) | payer MEDICARE, MEDICAID ==
[~2021-01-05] VITALS: Ht 188 cm; Wt 101.6 kg
[~2021-01-05] MED LIST changes: +ANGIOMAX 250 MG VIAL IV ONE; +IODIXANOL 320MG/ML 100ML BTL IV ONE; +IOHEXOL 350 MG/ML 100ML IJ ONE; +LIDOCAINE 2%HCL (LOCAL ANESTH.) INJ 20ML MDV ONE; +MIDAZOLAM HCL 1MG/1ML-2 ML VIAL ONE; -POM PO; +SODIUM CHL 0.9% 0 ML ONE; +fentaNYL CITRATE 100 MCG/2 ML VL ONE
== END | disposition home or self-care (01) ==
LOC: CATH 09:11
PROVIDERS: ATTEND Internal Medicine Cardiovascular Disease
DX: I70.213 Atherosclerosis of native arteries of extremities with intermittent claudication, bilateral legs (principal); E78.5 Hyperlipidemia, unspecified; E11.9 Type 2 diabetes mellitus without complications; I10 Essential (primary) hypertension; Z20.822 Contact with and (suspected) exposure to COVID-19; Z98.890 Other specified postprocedural states; Z79.899 Other long term (current) drug therapy; Z79.84 Long term (current) use of oral hypoglycemic drugs; Z68.28 Body mass index [BMI] 28.0-28.9, adult
CPT/HCPCS: 36246; 75716; C1760; C1769; C1894; J1644; J2250; J3010; J7030; Q9967; U0003; 99152

== ENCOUNTER → 2021-05-10 | Outpatient (CLI) | payer MEDICARE, MEDICAID ==
[~2021-05-10] MED LIST changes: -ANGIOMAX 250 MG VIAL IV ONE; -IODIXANOL 320MG/ML 100ML BTL IV ONE; -IOHEXOL 350 MG/ML 100ML IJ ONE; -LIDOCAINE 2%HCL (LOCAL ANESTH.) INJ 20ML MDV ONE; -MIDAZOLAM HCL 1MG/1ML-2 ML VIAL ONE; -SODIUM CHL 0.9% 0 ML ONE; -fentaNYL CITRATE 100 MCG/2 ML VL ONE
[2021-05-10 12:00] LABS: Potassium 4.7 mmol/L (3.5-5.1)
[2021-05-10 12:01] LABS: Urine Blood Negative /uL (Negative); Urine Specific Gravity 1.021 (1.001-1.035)
[2021-05-10 12:05] LABS: Free T4 (Free Thyroxine) 1.09 ng/dL (0.89-1.76); Prostate Specific Antigen 0.62 ng/mL (0.0-4.0)
[2021-05-10 12:12] LABS: Basophils # (auto) 0 10 ^3/uL (0-0.2); Basophils % (auto) 0.6 % (0.0-2.0); Eosinophils # (auto) 0.1 10 ^3/uL (0-0.8); Eosinophils % (auto) 2.7 % (0.0-7.0); Hematocrit 37.1 % (41.0-53.0); Hemoglobin 12.8 g/dL (13.5-17.5); Lymphocytes # (auto) 1.7 10 ^3/uL (0.4-5.4); Lymphocytes % (auto) 34.1 % (10.0-50.0); Mean Corpuscular Hemoglobin 31.3 pg (28.0-32.0); Mean Corpuscular Hgb Conc. 34.5 g/dL (32.0-36.0); Mean Corpuscular Volume 90.7 fL (80.0-100.0); Monocytes # (auto) 0.5 10 ^3/uL (0-1.3); Monocytes % (auto) 10.5 % (0.0-12.0); Neutrophils # (auto) 2.6 10 ^3/uL (1.6-8.6); Neutrophils % (auto) 52.1 % (37.0-80.0); Nucleated Red Blood Cells % 0.1 %; Red Blood Cells 4.09 10^6/uL (4.5-5.90); White Blood Cell 5.1 10^3/uL (4.4-10.8)
[2021-05-10 12:13] LABS: Albumin 3.6 g/dL (3.4-5.0); BUN/Creatinine Ratio 26.6; Bilirubin, Total 0.5 mg/dL (0.2-1.0); Calcium 8.9 mg/dL (8.5-10.1); Total Protein 6.7 g/dL (6.4-8.2)
== END | disposition home or self-care (01) ==
LOC: LAB 08:19
PROVIDERS: ATTEND Internal Medicine Cardiovascular Disease
DX: C61 Malignant neoplasm of prostate (principal); D51.3 Other dietary vitamin B12 deficiency anemia; I10 Essential (primary) hypertension; E11.9 Type 2 diabetes mellitus without complications; E55.9 Vitamin D deficiency, unspecified; D64.9 Anemia, unspecified; R00.2 Palpitations; R53.1 Weakness; R30.0 Dysuria
CPT/HCPCS: 36415; 80053; 80061; 81003; 82306; 82607; 83036; 84153; 84403; 84439; 84443; 85025

== ENCOUNTER → 2022-04-25 | Outpatient (CLI) | payer MEDICARE, MEDICAID | END | disposition home or self-care (01) | LOC: Rad HDHVI 13:29 | PROVIDERS: ATTEND Internal Medicine Cardiovascular Disease | DX: R55 Syncope and collapse (principal); Z86.73 Personal history of transient ischemic attack (TIA), and cerebral infarction without residual deficits | CPT/HCPCS: 70450 ==

== ENCOUNTER → 2022-05-07 | Outpatient (CLI) | payer MEDICARE, MEDICAID | END | disposition home or self-care (01) | LOC: Rad HDHVI 15:48 | PROVIDERS: ATTEND Internal Medicine Cardiovascular Disease | DX: I65.21 Occlusion and stenosis of right carotid artery (principal); I65.23 Occlusion and stenosis of bilateral carotid arteries; I65.22 Occlusion and stenosis of left carotid artery; E78.5 Hyperlipidemia, unspecified; I10 Essential (primary) hypertension | CPT/HCPCS: 93880 ==

== ENCOUNTER 2022-06-12 11:03 | Inpatient (IN) | payer MEDICARE, MEDICAID ==
[~2022-06-12] VITALS: Ht 180.3 cm; Wt 97.1 kg
[2022-06-12 12:07] LABS: Basophils # (auto) 0 10 ^3/uL (0-0.2); Eosinophils # (auto) 0.1 10 ^3/uL (0-0.8); Hemoglobin 12.9 g/dL (13.5-17.5); Lymphocytes # (auto) 1.2 10 ^3/uL (0.4-5.4); Monocytes # (auto) 0.4 10 ^3/uL (0-1.3); Nucleated Red Blood Cells % 0.1 %
[2022-06-12 12:11] LABS: Albumin 3.8 g/dL (3.4-5.0); Calcium 8.9 mg/dL (8.5-10.1)
[2022-06-12 12:12] LABS: Basophils % (auto) 0.9 % (0.0-2.0); Hematocrit 27.1 % (41.0-53.0); Lymphocytes % (auto) 31.3 % (10.0-50.0); Mean Corpuscular Hemoglobin 50.5 pg (28.0-32.0); Mean Corpuscular Volume 106.5 fL (80.0-100.0); Monocytes % (auto) 9.8 % (0.0-12.0); Neutrophils # (auto) 2.1 10 ^3/uL (1.6-8.6); Red Blood Cells 2.55 10^6/uL (4.5-5.90); Red Cell Distribution Width 14.3 % (11.8-14.3); White Blood Cell 3.7 10^3/uL (4.4-10.8)
[2022-06-12 12:13] LABS: INR 1.05 (0.9-1.15); Partial Thromboplastin Time 25.4 sec (24.6-33.4)
[2022-06-12 12:17] LABS: BUN/Creatinine Ratio 29.8; Bilirubin, Total 0.7 mg/dL (0.2-1.0); Total Protein 6.7 g/dL (6.4-8.2)
[2022-06-12 12:32] LABS: Mean Corpuscular Hgb Conc. 47.4 g/dL (32.0-36.0)
[2022-06-12] MEDS ORDERED: MORPHINE SULFATE INJ 2 MG/ml SYRG IV PRN ×2 (15:15→19:00)
[2022-06-12] MEDS ORDERED: NITROGLYCERIN 0.4 MG SL TAB SL PRN ×2 (15:15→19:00)
[2022-06-12] MEDS ORDERED: VANCOMYCIN HCL 1000 MG VL ONE (17:45)
[2022-06-12] MEDS ORDERED: fentaNYL CITRATE 100 MCG/2 ML VL ONE (17:46)
[2022-06-12] MEDS ORDERED: MIDAZOLAM HCL 2MG/2ML 2ml VIAL (1mg/ml) ONE (17:46)
[2022-06-12] MEDS ORDERED: LIDOCAINE 2%HCL (LOCAL ANESTH.) INJ 20ML MDV ONE (17:46)
[2022-06-12] MEDS ORDERED: VANCOMYCIN 1GM/250ML 250 ML IV ONE ×2 (17:47→18:00)
[2022-06-12] MEDS ORDERED: HYDROcodone-ACET 10/325MG TAB PO PRN (18:00)
[2022-06-12] MEDS ORDERED: ACETAMINOPHEN 325 MG TAB PO PRN (19:00)
[2022-06-12] MEDS ORDERED: HYDROcodone-ACET 5/325MG TAB PO PRN (19:00)
[2022-06-12 20:16] VITALS: BP 147/87
[2022-06-12 22:00] VITALS: BP 147/88
[2022-06-12] MEDS: ATORVASTATIN 20 MG TAB PO SCH (22:26)
[2022-06-12] MEDS: GABAPENTIN 300 MG CAP PO SCH (22:26)
[2022-06-13] MEDS ORDERED: VANCOMYCIN 1GM/250ML 250 ML IV SCH (06:00)
[2022-06-13] MEDS: AZILSARTAN MEDOXOMIL CHLORTHAL PO SCH (07:00)
[2022-06-13 09:19] VITALS: BP 108/80
[2022-06-13] MEDS ORDERED: IOHEXOL 350 MG/ML 100ML IJ ONE (12:39)
[2022-06-13] MEDS ORDERED: LIDOCAINE 2%HCL (LOCAL ANESTH.) INJ 20ML MDV ONE (12:39)
[2022-06-13 13:00] VITALS: BP 138/66
[2022-06-13 16:54] VITALS: BP 132/58
[2022-06-13] MEDS: GABAPENTIN 300 MG CAP PO SCH (21:20)
[2022-06-13] MEDS: ATORVASTATIN 20 MG TAB PO SCH (21:20)
[2022-06-13 22:53] VITALS: BP 123/92
[2022-06-14 05:31] VITALS: BP 103/55
[2022-06-14] MEDS: AZILSARTAN MEDOXOMIL CHLORTHAL PO SCH (06:12)
[2022-06-14] MEDS ORDERED: LIDOCAINE 2%HCL (LOCAL ANESTH.) INJ 10ml MDV ONE ×2 (07:30→08:38)
[2022-06-14] MEDS ORDERED: IOHEXOL 350 MG/ML 100ML IJ ONE (07:30)
[2022-06-14] MEDS ORDERED: VANCOMYCIN HCL 1000 MG VL ONE (08:37)
[2022-06-14] MEDS ORDERED: fentaNYL CITRATE 100 MCG/2 ML VL ONE (08:37)
[2022-06-14] MEDS ORDERED: MIDAZOLAM HCL 2MG/2ML 2ml VIAL (1mg/ml) ONE (08:38)
[2022-06-14] MEDS ORDERED: VANCOMYCIN 1GM/250ML 250 ML IV ONE (08:38)
[2022-06-14] MEDS ORDERED: ceFAZolin 1GM/50ML 50 ML IV SCH (09:30)
[2022-06-14] MEDS ORDERED: LIDOCAINE 2%HCL (LOCAL ANESTH.) INJ 20ML MDV ONE (09:35)
[2022-06-14 13:00] VITALS: BP 140/77
== END 2022-06-14 18:00 | disposition home or self-care (01) | DRG 229 ==
LOC: ER 11:03 → TELE 15:10 → UNDOADMIN 15:10 → TELE-CENTR 18:54
PROVIDERS: ADMIT Internal Medicine Cardiovascular Disease; ATTEND Internal Medicine Cardiovascular Disease
PROC: 0JH606Z Insertion of Pacemaker, Dual Chamber into Chest Subcutaneous Tissue and Fascia, Open Approach (ICD-10-PCS; principal; 2022-06-14)
PROC: 02W Heart and Great Vessels, Revision (ICD-10-PCS; 2022-06-14)
PROC: 02H63JZ Insertion of Pacemaker Lead into Right Atrium, Percutaneous Approach (ICD-10-PCS; 2022-06-14)
PROC: B4101ZZ Fluoroscopy of Abdominal Aorta using Low Osmolar Contrast (ICD-10-PCS; 2022-06-14)
PROC: B41G1ZZ Fluoroscopy of Left Lower Extremity Arteries using Low Osmolar Contrast (ICD-10-PCS; 2022-06-14)
PROC: 02HK3JZ Insertion of Pacemaker Lead into Right Ventricle, Percutaneous Approach (ICD-10-PCS; 2022-06-14)
DX: I44.2 Atrioventricular block, complete (principal); I49.5 Sick sinus syndrome; D53.9 Nutritional anemia, unspecified; D72.819 Decreased white blood cell count, unspecified; E78.5 Hyperlipidemia, unspecified; I48.91 Unspecified atrial fibrillation; I10 Essential (primary) hypertension; Z20.822 Contact with and (suspected) exposure to COVID-19; E11.51 Type 2 diabetes mellitus with diabetic peripheral angiopathy without gangrene; E11.42 Type 2 diabetes mellitus with diabetic polyneuropathy; M19.90 Unspecified osteoarthritis, unspecified site; Z79.899 Other long term (current) drug therapy; Z82.49 Family history of ischemic heart disease and other diseases of the circulatory system; Z79.01 Long term (current) use of anticoagulants; Z79.84 Long term (current) use of oral hypoglycemic drugs; Z86.73 Personal history of transient ischemic attack (TIA), and cerebral infarction without residual deficits
CPT/HCPCS: 33208; 33215; 36415; 70450; 71045; 71046; 75625; 75716; 80048; 80053; 83735; 83880; 84484; 85025; 85610; 85730; 86850; 86900; 86901; 93005; 99152; 99153; C1769; C1785; G0378; G0463; J2001; J2250

== ENCOUNTER → 2022-06-12 | Outpatient (CLI) | payer MEDICARE, MEDICAID ==
[2022-06-12 09:40] VITALS: BP 149/64
[2022-06-12 10:48] VITALS: BP 176/77
[2022-06-12 12:31] LABS: BUN/Creatinine Ratio 28.8; Calcium 9.1 mg/dL (8.5-10.1)
[2022-06-12 12:38] LABS: INR 1.02 (0.9-1.15); Partial Thromboplastin Time 25.9 sec (24.6-33.4)
[2022-06-12 18:29] LABS: Lymphocytes % (auto) 31.1 % (10.0-50.0); Monocytes % (auto) 10.3 % (0.0-12.0); Neutrophils % (auto) 55.8 % (37.0-80.0); White Blood Cell 5.7 10^3/uL (4.4-10.8)
[2022-06-12 18:30] LABS: Basophils # (auto) 0.1 10 ^3/uL (0-0.2); Basophils % (auto) 1.1 % (0.0-2.0); Eosinophils # (auto) 0.1 10 ^3/uL (0-0.8); Eosinophils % (auto) 1.7 % (0.0-7.0); Hematocrit 39.5 % (41.0-53.0); Lymphocytes # (auto) 1.8 10 ^3/uL (0.4-5.4); Monocytes # (auto) 0.6 10 ^3/uL (0-1.3); Neutrophils # (auto) 3.2 10 ^3/uL (1.6-8.6); Red Blood Cells 4.27 10^6/uL (4.5-5.90)
[2022-06-12 18:31] LABS: Mean Corpuscular Hemoglobin 30.4 pg (28.0-32.0); Mean Corpuscular Hgb Conc. 32.9 g/dL (32.0-36.0); Mean Corpuscular Volume 92.4 fL (80.0-100.0); Red Cell Distribution Width 14.7 % (11.8-14.3)
== END | disposition home or self-care (01) ==
LOC: Rad HDHVI 09:31
PROVIDERS: ATTEND Internal Medicine Cardiovascular Disease
DX: Z01.812 Encounter for preprocedural laboratory examination (principal); I73.9 Peripheral vascular disease, unspecified; R60.0 Localized edema; R06.02 Shortness of breath; I70.0 Atherosclerosis of aorta
CPT/HCPCS: 36415; 71046; 80048; 85025; 85610; 85730; 93005; G0463

== ENCOUNTER → 2022-11-02 | Outpatient (CLI) | payer MEDICARE, MEDICAID ==
[~2022-11-02] MED LIST changes: -APIX2.5T PO
== END | disposition home or self-care (01) ==
LOC: Rad HDHVI 11:02
PROVIDERS: ATTEND Internal Medicine Cardiovascular Disease
DX: I08.0 Rheumatic disorders of both mitral and aortic valves (principal); I11.9 Hypertensive heart disease without heart failure; E78.5 Hyperlipidemia, unspecified
CPT/HCPCS: 93306

== ENCOUNTER → 2022-11-14 | Outpatient (CLI) | payer MEDICARE, MEDICAID | END | disposition home or self-care (01) | LOC: Rad HDHVI 08:05 | PROVIDERS: ATTEND Internal Medicine Cardiovascular Disease | DX: I65.23 Occlusion and stenosis of bilateral carotid arteries (principal); I73.9 Peripheral vascular disease, unspecified; R60.9 Edema, unspecified | CPT/HCPCS: 93880; 93925 ==

== ENCOUNTER 2022-12-26 10:45 | Emergency (ER) | payer MEDICARE, MEDICAID ==
[~2022-12-26] VITALS: Ht 177.8 cm; Wt 112.0 kg
[~2022-12-26 10:45] MED LIST changes: +AZIL40TA2 PO; -AZIL40TA3 PO; -CELE200C PO; +CHOL1TAB30 PO; +CILO100T PO; -CLOTCRE3 TOP; +CYCL-839 PO; -GABA300C PO; +HYDR-4188 PO; +RIVA20TA PO
[2022-12-26] MEDS ORDERED: SODIUM CHLORIDE 0.9% 1,000 ML IVB ONE (11:15)
[2022-12-26] MEDS ORDERED: MORPHINE SULFATE 4 MG/ML SYR/VIAL IV ONE (11:15)
[2022-12-26] MEDS ORDERED: ONDANSETRON HCL 4 MG/2 ML VIAL IV ONE (11:15)
[2022-12-26] MEDS ORDERED: IOHEXOL 300 MG/ML 100ML BOTTLE IJ ONE (11:50)
[2022-12-26 12:03] LABS: INR 1.08 (0.9-1.15); Partial Thromboplastin Time 29.2 sec (24.6-33.4)
[2022-12-26 12:09] LABS: Albumin 3.7 g/dL (3.4-5.0); BUN/Creatinine Ratio 20.7; Potassium 4.3 mmol/L (3.5-5.1)
[2022-12-26 12:12] LABS: Bilirubin, Total 0.9 mg/dL (0.2-1.0); Total Protein 7.1 g/dL (6.4-8.2)
[2022-12-26 12:40] LABS: Basophils # (auto) 0 10 ^3/uL (0-0.2); Basophils % (auto) 0.6 % (0.0-2.0); Eosinophils # (auto) 0.2 10 ^3/uL (0-0.8); Eosinophils % (auto) 3.6 % (0.0-7.0); Hematocrit 36.8 % (41.0-53.0); Hemoglobin 13.2 g/dL (13.5-17.5); Lymphocytes # (auto) 1.5 10 ^3/uL (0.4-5.4); Lymphocytes % (auto) 31.4 % (10.0-50.0); Mean Corpuscular Hemoglobin 32.4 pg (28.0-32.0); Mean Corpuscular Hgb Conc. 35.9 g/dL (32.0-36.0); Mean Corpuscular Volume 90.1 fL (80.0-100.0); Monocytes # (auto) 0.5 10 ^3/uL (0-1.3); Monocytes % (auto) 11.2 % (0.0-12.0); Neutrophils # (auto) 2.5 10 ^3/uL (1.6-8.6); Neutrophils % (auto) 53.2 % (37.0-80.0); Nucleated Red Blood Cells % 0.4 %; Red Blood Cells 4.08 10^6/uL (4.5-5.90); Red Cell Distribution Width 14.1 % (11.8-14.3); White Blood Cell 4.7 10^3/uL (4.4-10.8)
[2022-12-26] MEDS ORDERED: MAGNESIUM CITRATE SOLUTION 300 ML BTL PO ONE (13:00)
[2022-12-26 15:00] LABS: Urine Bacteria NONE SEEN /hpf (None Seen); Urine Blood Negative /uL (Negative); Urine WBC 1 /hpf (0 - 3)
[2022-12-26 15:01] LABS: Urine Specific Gravity > 1.050 (1.001-1.035)
[2022-12-26] MEDS ORDERED: ONDA-144 PO (15:43)
[2022-12-26] MEDS ORDERED: POLY33504 PO (15:43)
[2022-12-26] MEDS ORDERED: POLYETHYLENE GLYCOL 17 GM PWDR PO ONE (16:00)
[2022-12-26 16:25] VITALS: BP 106/70
== END 2022-12-26 16:25 | disposition home or self-care (01) ==
LOC: ER 10:45
DX: K59.00 Constipation, unspecified (principal); K80.20 Calculus of gallbladder without cholecystitis without obstruction; E11.9 Type 2 diabetes mellitus without complications; I10 Essential (primary) hypertension; Z86.73 Personal history of transient ischemic attack (TIA), and cerebral infarction without residual deficits; Z79.899 Other long term (current) drug therapy
CPT/HCPCS: 36415; 74177; 80053; 81001; 83605; 83690; 85025; 85610; 85730; 96360; 96361; 99285; J7030; Q9967

== ENCOUNTER 2023-01-07 08:16 | Emergency (ER) | payer MEDICARE, MEDICAID ==
[~2023-01-07] VITALS: Ht 175.3 cm; Wt 102.0 kg
[~2023-01-07 08:16] MED LIST changes: +ONDA-144 PO; +POLY33504 PO
[2023-01-07 09:13] VITALS: BP 172/64
[2023-01-07] MEDS ORDERED: LIDOCAINE 1% HCL (LOCAL ANESTH.) INJ 20ML MDV IJ ONE (09:15)
[2023-01-07] MEDS ORDERED: NEOMYCIN-BACITRACIN-POLYM UNITDOSE PKG TOP OINT TOP ONE (09:15)
[2023-01-07] MEDS ORDERED: ACETAMINOPHEN 500 MG TAB PO ONE (10:15)
[2023-01-07] MEDS ORDERED: cefTRIAXone SOD 1,000 MG VL IM ONE (11:00)
[2023-01-07] MEDS ORDERED: ACET1CAP14 PO (11:01)
[2023-01-07] MEDS ORDERED: BACDST PO (11:01)
== END 2023-01-07 11:20 | disposition home or self-care (01) ==
LOC: ER 08:16
DX: S60.551A Superficial foreign body of right hand, initial encounter (principal); Z79.899 Other long term (current) drug therapy; Z79.84 Long term (current) use of oral hypoglycemic drugs; Z86.73 Personal history of transient ischemic attack (TIA), and cerebral infarction without residual deficits; E11.9 Type 2 diabetes mellitus without complications; I10 Essential (primary) hypertension; X58.XXXA Exposure to other specified factors, initial encounter; Y93.89 Activity, other specified; Y92.89 Other specified places as the place of occurrence of the external cause; Y99.8 Other external cause status
CPT/HCPCS: 73130; 96372; 99283; J0696; J2001

== ENCOUNTER 2023-01-24 09:08 | Day surgery (SDC) | payer MEDICARE, MEDICAID ==
[2022-12-25 10:38] LABS: INR 1.07 (0.9-1.15); Partial Thromboplastin Time 26.9 sec (24.6-33.4)
[2022-12-25 11:23] LABS: Basophils # (auto) 0 10 ^3/uL (0-0.2); Basophils % (auto) 0.9 % (0.0-2.0); Eosinophils # (auto) 0.1 10 ^3/uL (0-0.8); Eosinophils % (auto) 2.5 % (0.0-7.0); Hematocrit 37.6 % (41.0-53.0); Hemoglobin 13.2 g/dL (13.5-17.5); Lymphocytes # (auto) 1.9 10 ^3/uL (0.4-5.4); Lymphocytes % (auto) 34.4 % (10.0-50.0); Mean Corpuscular Hemoglobin 31.5 pg (28.0-32.0); Mean Corpuscular Hgb Conc. 35.1 g/dL (32.0-36.0); Mean Corpuscular Volume 89.8 fL (80.0-100.0); Monocytes # (auto) 0.7 10 ^3/uL (0-1.3); Monocytes % (auto) 12.3 % (0.0-12.0); Neutrophils # (auto) 2.7 10 ^3/uL (1.6-8.6); Neutrophils % (auto) 49.9 % (37.0-80.0); Nucleated Red Blood Cells % 0.1 %; Red Blood Cells 4.19 10^6/uL (4.5-5.90); White Blood Cell 5.4 10^3/uL (4.4-10.8)
[2022-12-25 11:26] LABS: BUN/Creatinine Ratio 25.2; Potassium 4.6 mmol/L (3.5-5.1)
[2023-01-23 09:20] LABS: Basophils # (auto) 0.1 10 ^3/uL (0-0.2); Basophils % (auto) 1.3 % (0.0-2.0); Eosinophils # (auto) 0.1 10 ^3/uL (0-0.8); Eosinophils % (auto) 1.8 % (0.0-7.0); Hematocrit 37.7 % (41.0-53.0); Hemoglobin 13.5 g/dL (13.5-17.5); Lymphocytes % (auto) 31.6 % (10.0-50.0); Mean Corpuscular Hemoglobin 31.1 pg (28.0-32.0); Mean Corpuscular Volume 86.5 fL (80.0-100.0); Monocytes # (auto) 0.5 10 ^3/uL (0-1.3); Monocytes % (auto) 8.6 % (0.0-12.0); Neutrophils # (auto) 3.6 10 ^3/uL (1.6-8.6); Neutrophils % (auto) 56.7 % (37.0-80.0); Nucleated Red Blood Cells % 0.1 %; Red Blood Cells 4.35 10^6/uL (4.5-5.90); Red Cell Distribution Width 14.3 % (11.8-14.3); White Blood Cell 6.3 10^3/uL (4.4-10.8)
[2023-01-23 09:36] LABS: INR 1.06 (0.9-1.15); Partial Thromboplastin Time 24.7 sec (24.6-33.4)
[2023-01-23 09:43] LABS: BUN/Creatinine Ratio 21.3 (10.0-20.0); Calcium 9.1 mg/dL (8.5-10.1); Potassium 4.9 mmol/L (3.5-5.1)
[~2023-01-24] VITALS: Ht 182.9 cm; Wt 99.8 kg
[2023-01-24] VITALS (7 sets, daily range): BP systolic 112–145; BP diastolic 64–99
[~2023-01-24 09:08] MED LIST changes: +ACET1CAP14 PO
[2023-01-24] MEDS ORDERED: POLY33504 PO (10:16)
[2023-01-24] MEDS ORDERED: ONDA-144 PO (10:16)
[2023-01-24] MEDS ORDERED: ACET-1156 PO (10:16)
[2023-01-24] MEDS ORDERED: ANGIOMAX 250 MG VIAL IV ONE (11:34)
[2023-01-24] MEDS ORDERED: fentaNYL CITRATE 100 MCG/2 ML VL ONE (11:35)
[2023-01-24] MEDS ORDERED: MIDAZOLAM HCL 2MG/2ML 2ml VIAL (1mg/ml) ONE (11:36)
[2023-01-24] MEDS ORDERED: SODIUM CHL 0.9% 0 ML ONE (11:37)
[2023-01-24] MEDS ORDERED: LIDOCAINE 2%HCL (LOCAL ANESTH.) INJ 10ml MDV ONE (11:37)
[2023-01-24] MEDS ORDERED: LIDOCAINE 2%HCL (LOCAL ANESTH.) INJ 20ML MDV ONE (11:41)
[2023-01-24] MEDS ORDERED: IOHEXOL 350 MG/ML 500ML BOTTLE IJ ONE (11:58)
== END 2023-01-24 14:36 | disposition home or self-care (01) ==
LOC: CATH 09:08
PROVIDERS: ATTEND Internal Medicine Cardiovascular Disease
DX: R07.89 Other chest pain (principal); I42.0 Dilated cardiomyopathy; I48.0 Paroxysmal atrial fibrillation; I11.0 Hypertensive heart disease with heart failure; I50.9 Heart failure, unspecified; I49.5 Sick sinus syndrome; Z86.73 Personal history of transient ischemic attack (TIA), and cerebral infarction without residual deficits; Z79.899 Other long term (current) drug therapy; Z79.01 Long term (current) use of anticoagulants; Z79.84 Long term (current) use of oral hypoglycemic drugs; Z20.822 Contact with and (suspected) exposure to COVID-19
CPT/HCPCS: 36415; 80048; 85025; 85610; 85730; 93458; C1769; C1894; J1644; J2001; J2250; J3010; J7030; Q9967; U0003

== ENCOUNTER → 2023-03-11 | Outpatient (CLI) | payer MEDICARE, MEDICAID ==
[~2023-03-11] MED LIST changes: +ACET-1156 PO; -ACET1CAP14 PO; +CELE100C82 PO; +CHOL50007 PO; +ZOLP10TA PO
[2023-03-11 12:51] VITALS: BP 135/69
[2023-03-11 13:04] VITALS: BP 126/76
[2023-03-11 15:06] LABS: Basophils # (auto) 0 10 ^3/uL (0-0.2); Basophils % (auto) 0.4 % (0.0-2.0); Eosinophils # (auto) 0.1 10 ^3/uL (0-0.8); Eosinophils % (auto) 1.3 % (0.0-7.0); Hematocrit 35.2 % (41.0-53.0); Hemoglobin 12.2 g/dL (13.5-17.5); Lymphocytes # (auto) 1.6 10 ^3/uL (0.4-5.4); Lymphocytes % (auto) 27.4 % (10.0-50.0); Mean Corpuscular Hemoglobin 31.5 pg (28.0-32.0); Mean Corpuscular Hgb Conc. 34.8 g/dL (32.0-36.0); Mean Corpuscular Volume 90.4 fL (80.0-100.0); Monocytes # (auto) 0.5 10 ^3/uL (0-1.3); Monocytes % (auto) 8.2 % (0.0-12.0); Neutrophils # (auto) 3.7 10 ^3/uL (1.6-8.6); Neutrophils % (auto) 62.7 % (37.0-80.0); Nucleated Red Blood Cells % 0.1 %; Red Blood Cells 3.89 10^6/uL (4.5-5.90); Red Cell Distribution Width 15.2 % (11.8-14.3); White Blood Cell 5.9 10^3/uL (4.4-10.8)
[2023-03-11 15:39] LABS: INR 1.06 (0.9-1.15); Partial Thromboplastin Time 25.6 sec (24.6-33.4)
[2023-03-11 15:41] LABS: Albumin 3.7 g/dL (3.4-5.0); Calcium 8.9 mg/dL (8.5-10.1); Potassium 4.4 mmol/L (3.5-5.1)
[2023-03-11 15:45] LABS: BUN/Creatinine Ratio 16.5 (10.0-20.0); Bilirubin, Total 0.7 mg/dL (0.2-1.0); Total Protein 6.5 g/dL (6.4-8.2)
== END | disposition home or self-care (01) ==
LOC: Rad HDHVI 12:42
PROVIDERS: ATTEND Internal Medicine Cardiovascular Disease
DX: Z01.818 Encounter for other preprocedural examination (principal); R94.31 Abnormal electrocardiogram [ECG] [EKG]; I44.7 Left bundle-branch block, unspecified; I11.0 Hypertensive heart disease with heart failure; I50.43 Acute on chronic combined systolic (congestive) and diastolic (congestive) heart failure; I42.0 Dilated cardiomyopathy; I70.0 Atherosclerosis of aorta; M47.814 Spondylosis without myelopathy or radiculopathy, thoracic region; R00.8 Other abnormalities of heart beat
CPT/HCPCS: 36415; 71046; 80053; 85025; 85610; 85730; 93005; G0463

== ENCOUNTER 2023-03-14 08:41 | Inpatient (IN) | payer MEDICARE, MEDICAID ==
[2023-03-14] VITALS (13 sets, daily range): BP systolic 118–159; BP diastolic 79–99
[~2023-03-14] VITALS: Ht 177.8 cm; Wt 93.2 kg
[~2023-03-14 08:41] MED LIST changes: -ACET-1156 PO; +ACET-1881 PO; -CHOL1TAB30 PO; -CYCL-839 PO; -ONDA-144 PO; -POLY33504 PO
[2023-03-14] MEDS ORDERED: VANCOMYCIN 1GM/250ML 250 ML IV ONE ×2 (09:15→09:17)
[2023-03-14] MEDS ORDERED: fentaNYL CITRATE 100 MCG/2 ML VL ONE (11:13)
[2023-03-14] MEDS ORDERED: MIDAZOLAM HCL 2MG/2ML 2ml VIAL (1mg/ml) ONE (11:13)
[2023-03-14] MEDS ORDERED: LIDOCAINE 2%HCL (LOCAL ANESTH.) INJ 20ML MDV ONE ×3 (11:13→12:16)
[2023-03-14] MEDS ORDERED: IODIXANOL 320MG/ML 100ML BTL IV ONE (11:18)
[2023-03-14] MEDS ORDERED: VANCOMYCIN HCL 1000 MG VL ONE (11:38)
[2023-03-14] MEDS ORDERED: DEXTROSE (50%) 50ML SYRG IV PRN (14:00)
[2023-03-14] MEDS ORDERED: NITROGLYCERIN 0.4 MG SL TAB SL PRN (14:00)
[2023-03-14] MEDS ORDERED: ACETAMINOPHEN 325 MG TAB PO PRN (14:00)
[2023-03-14] MEDS ORDERED: HYDROcodone-ACET 5/325MG TAB PO PRN (14:00)
[2023-03-14] MEDS ORDERED: MORPHINE SULFATE INJ 2 MG/ml SYRG IV PRN (14:00)
[2023-03-14] MEDS ORDERED: RIVA20TA PO (14:39)
[2023-03-14] MEDS ORDERED: ZOLPIDEM TARTRATE 5 MG TAB PO PRN (16:00)
[2023-03-14] MEDS: InsuLIN REG 1unit/0.01ml Soln (100units/ml) SC SCH (17:00)
[2023-03-14] MEDS: ceFAZolin 1GM/50ML 50 ML IV SCH ×2 (17:52→21:57)
[2023-03-14] MEDS: ACCU-CHEK COMFORT CURVE STRIP VI SCH ×2 (17:58→21:57)
[2023-03-14] MEDS: CILOSTAZOL 100 MG TAB PO SCH (21:57)
[2023-03-14] MEDS ORDERED: InsuLIN REG 1unit/0.01ml Soln (100units/ml) SC SCH (22:00)
[2023-03-14] MEDS ORDERED: ATORVASTATIN 20 MG TAB PO SCH (22:00)
[2023-03-15 05:00] VITALS: BP 90/58
[2023-03-15] MEDS: ACCU-CHEK COMFORT CURVE STRIP VI SCH ×3 (06:14→17:41)
[2023-03-15] MEDS: InsuLIN REG 1unit/0.01ml Soln (100units/ml) SC SCH ×3 (06:14→17:00)
[2023-03-15] MEDS ORDERED: metFORMIN HYDROCHLORIDE 500 MG TAB PO SCH (07:00)
[2023-03-15 09:00] VITALS: BP 109/76
[2023-03-15] MEDS ORDERED: hydrOXYchloroQUINE SULFATE 200 MG TAB PO SCH (10:00)
[2023-03-15] MEDS ORDERED: CELECOXIB 100 MG CAP PO SCH (10:00)
[2023-03-15] MEDS: CILOSTAZOL 100 MG TAB PO SCH (10:06)
[2023-03-15 13:00] VITALS: BP 123/73
[2023-03-15 17:00] VITALS: BP 112/67
== END 2023-03-15 20:10 | disposition home or self-care (01) | DRG 227 ==
LOC: CATH 08:41 → TELE 14:12 → TELE-CENTR 17:33
PROVIDERS: ADMIT Internal Medicine Cardiovascular Disease; ATTEND Internal Medicine Cardiovascular Disease
PROC: 02PA3MZ Removal of Cardiac Lead from Heart, Percutaneous Approach (ICD-10-PCS; principal; 2023-03-14)
PROC: 02HK3KZ Insertion of Defibrillator Lead into Right Ventricle, Percutaneous Approach (ICD-10-PCS; 2023-03-14)
PROC: 0JH609Z Insertion of Cardiac Resynchronization Defibrillator Pulse Generator into Chest Subcutaneous Tissue and Fascia, Open Approach (ICD-10-PCS; 2023-03-14)
PROC: 02HL3KZ Insertion of Defibrillator Lead into Left Ventricle, Percutaneous Approach (ICD-10-PCS; 2023-03-14)
PROC: 0JPT0PZ Removal of Cardiac Rhythm Related Device from Trunk Subcutaneous Tissue and Fascia, Open Approach (ICD-10-PCS; 2023-03-14)
DX: I42.9 Cardiomyopathy, unspecified (principal); D68.59 Other primary thrombophilia; I50.20 Unspecified systolic (congestive) heart failure; I11.0 Hypertensive heart disease with heart failure; E11.9 Type 2 diabetes mellitus without complications
CPT/HCPCS: 33225; 33241; 33244; 33249; 71045; 82962; 93005; 99152; 99153; G0378; J0690; J1815; J2250; Q9967

== ENCOUNTER → 2024-03-02 | Outpatient (CLI) | payer MEDICARE, MEDICAID ==
[~2024-03-02] VITALS: Ht 177.8 cm; Wt 99.8 kg
[~2024-03-02] MED LIST changes: +ADENOSINE 84 MG in GIVE UN-DILUTED 0 ML IV ONE; +ADENOSINE 90 MG/30 ML INJ IV ONE; -CILO100T PO; +CILO100T3 PO; -HYDR-4188 PO; +HYDR-4491 PO
== END | disposition home or self-care (01) ==
LOC: Rad HDHVI 09:13
PROVIDERS: ATTEND Internal Medicine Cardiovascular Disease
DX: M48.07 Spinal stenosis, lumbosacral region (principal); I70.0 Atherosclerosis of aorta; I48.0 Paroxysmal atrial fibrillation; I11.0 Hypertensive heart disease with heart failure; I50.43 Acute on chronic combined systolic (congestive) and diastolic (congestive) heart failure; I49.5 Sick sinus syndrome; E11.9 Type 2 diabetes mellitus without complications; E78.5 Hyperlipidemia, unspecified; Z95.0 Presence of cardiac pacemaker
CPT/HCPCS: 72100; 78452; 93005; 96374; 96375; A9500; J0153

== ENCOUNTER → 2024-07-07 | Outpatient (CLI) | payer MEDICARE, MEDICAID ==
[~2024-07-07] MED LIST changes: -ADENOSINE 84 MG in GIVE UN-DILUTED 0 ML IV ONE; -ADENOSINE 90 MG/30 ML INJ IV ONE; +AMIO400T7 PO; -ATOR20TA PO; -AZIL40TA2 PO; +BUME1TAB3 PO; -CILO100T3 PO; +DIGO0.12 PO; +EMPA1TAB3 PO; -HYDR-4491 PO; +IOHEXOL 350 MG/ML 100ML IJ ONE; +LIDOCAINE 2%HCL (LOCAL ANESTH.) INJ 20ML MDV ONE; -METF-370 PO; +METO-6 PO; +MIDAZOLAM HCL 2MG/2ML 2ml VIAL (1mg/ml) ONE; +POTA-228 PO; +VERI2.5T PO; +fentaNYL CITRATE 100 MCG/2 ML VL ONE
[2024-07-07 09:40] VITALS: BP 110/70; PULSE 65; RESP 16; O2SAT 96
[2024-07-07] MEDS: SODIUM ZIRCONIUM CYCL 10 GM PAK PO ONE (09:40)
[2024-07-07 09:55] VITALS: BP 112/59; PULSE 64; RESP 16; O2SAT 96
== END | disposition home or self-care (01) ==
LOC: CHF HDHVI 09:53
PROVIDERS: ATTEND Internal Medicine Cardiovascular Disease
DX: E78.5 Hyperlipidemia, unspecified (principal); I11.0 Hypertensive heart disease with heart failure; I50.9 Heart failure, unspecified; Z95.810 Presence of automatic (implantable) cardiac defibrillator
CPT/HCPCS: G0463

== ENCOUNTER 2024-07-09 07:01 | Day surgery (SDC) | payer MEDICARE, MEDICAID ==
[2024-07-06 13:00] LABS: INR 1.06 (0.9-1.15); Partial Thromboplastin Time 25.6 SEC (24.5-34.5); Prothrombin Time 11.2 sec (9.3-11.8)
[2024-07-06 13:04] LABS: Eosinophils # (auto) 0.1 10 ^3/uL (0-0.8); Lymphocytes # (auto) 1.5 10 ^3/uL (0.4-5.4); Monocytes # (auto) 0.6 10 ^3/uL (0-1.3); Platelet Count (auto) 155 10^3/uL (140-450)
[2024-07-06 13:06] LABS: Basophils # (auto) 0.1 10 ^3/uL (0-0.2); Basophils % (auto) 0.7 % (0.0-2.0); Eosinophils % (auto) 1.4 % (0.0-7.0); Hematocrit 38.7 % (41.0-53.0); Hemoglobin 14.4 g/dL (13.5-17.5); Lymphocytes % (auto) 20.2 % (10.0-50.0); Mean Corpuscular Hemoglobin 34.9 pg (28.0-32.0); Mean Corpuscular Volume 93.6 fL (80.0-100.0); Monocytes % (auto) 8.9 % (0.0-12.0); Neutrophils % (auto) 68.8 % (37.0-80.0); Nucleated Red Blood Cells % 0.1 %; Red Blood Cells 4.14 10^6/uL (4.5-5.90); Red Cell Distribution Width 14.2 % (11.8-14.3); White Blood Cell 7.3 10^3/uL (4.4-10.8)
[2024-07-06 13:07] LABS: Mean Corpuscular Hgb Conc. 37.3 g/dL (32.0-36.0)
[2024-07-06 13:22] LABS: Anion Gap 4 (5-15); Calcium 10.2 mg/dL (8.7-10.4); Carbon Dioxide 29 mmol/L (20-30); Chloride 107 mmol/L (98-107); Sodium 140 mmol/L (136-145)
[2024-07-06 13:28] LABS: Glucose 122 mg/dL (74-106)
[2024-07-06 14:44] LABS: Potassium 5.9 mmol/L (3.5-5.1)
[2024-07-06 16:38] LABS: BUN/Creatinine Ratio 16.2 (10.0-20.0); Blood Urea Nitrogen 23 mg/dL (9-23)
[~2024-07-09] VITALS: Ht 180.3 cm; Wt 94.8 kg
[2024-07-09] VITALS (7 sets, daily range): BP systolic 120–144; BP diastolic 74–86; PULSE 65; RESP 12–19; TEMP 97.9; O2SAT 93–99
[~2024-07-09 07:01] MED LIST changes: -IOHEXOL 350 MG/ML 100ML IJ ONE; -LIDOCAINE 2%HCL (LOCAL ANESTH.) INJ 20ML MDV ONE; -MIDAZOLAM HCL 2MG/2ML 2ml VIAL (1mg/ml) ONE; -fentaNYL CITRATE 100 MCG/2 ML VL ONE
[2024-07-09] MEDS ORDERED: IODIXANOL 320MG/ML 100ML BTL IV ONE (07:33)
[2024-07-09] MEDS ORDERED: HEPARIN IN NS 1000Units/500mL 1,500 ML ONE (07:33)
== END 2024-07-09 11:26 | disposition home or self-care (01) ==
LOC: CATH 07:01
PROVIDERS: ATTEND Internal Medicine Cardiovascular Disease
DX: R06.02 Shortness of breath (principal); R07.89 Other chest pain; I42.0 Dilated cardiomyopathy; I11.0 Hypertensive heart disease with heart failure; I50.22 Chronic systolic (congestive) heart failure; Z95.810 Presence of automatic (implantable) cardiac defibrillator
CPT/HCPCS: 36415; 80048; 85025; 85610; 85730; 93460; C1760; C1894; J1644; J2250; J3010; J7030; Q9967; 93456; 99152

== ENCOUNTER → 2024-08-31 | Outpatient (CLI) | payer MEDICARE, MEDICAID ==
[2024-08-31 12:07] LABS: Urine Blood Negative /uL (Negative); Urine Clarity Clear (Clear); Urine Color Light-Yellow (Yellow); Urine Protein, UAD Negative (Negative); Urine Specific Gravity 1.023 (1.001-1.035); Urine Urobilinogen Normal (Negative)
[2024-08-31 12:12] LABS: Alanine Aminotransferase 21 U/L (7-40); Albumin 4.3 g/dL (3.2-4.8); Alkaline Phosphatase 134 U/L (46-116); Anion Gap 4 (5-15); Aspartate Aminotransferase 22 U/L (13-40); BUN/Creatinine Ratio 18.3 (10.0-20.0); Blood Urea Nitrogen 24 mg/dL (9-23); Carbon Dioxide 29 mmol/L (20-31); Chloride 108 mmol/L (98-107); Glucose 125 mg/dL (74-106); LDL Cholesterol 113 mg/dL (< 100); Sodium 141 mmol/L (136-145); Triglycerides 82 mg/dL (< 150)
[2024-08-31 12:13] LABS: Bilirubin, Direct 0.3 mg/dL (<0.3); Bilirubin, Total 1.1 mg/dL (0.2-1.0); Cholesterol 187 mg/dL (< 200); HDL Cholesterol 59 mg/dL (40-59); Total Protein 6.9 g/dL (5.7-8.2)
[2024-08-31 12:30] LABS: Basophils # (auto) 0 10 ^3/uL (0-0.2); Basophils % (auto) 0.8 % (0.0-2.0); Hemoglobin 13.4 g/dL (13.5-17.5); Lymphocytes # (auto) 1.5 10 ^3/uL (0.4-5.4); Mean Corpuscular Hgb Conc. 35.3 g/dL (32.0-36.0); Monocytes # (auto) 0.5 10 ^3/uL (0-1.3); Neutrophils # (auto) 3.9 10 ^3/uL (1.6-8.6); White Blood Cell 6.1 10^3/uL (4.4-10.8)
[2024-08-31 12:32] LABS: Eosinophils # (auto) 0.1 10 ^3/uL (0-0.8); Hematocrit 37.9 % (41.0-53.0); Lymphocytes % (auto) 25.1 % (10.0-50.0); Mean Corpuscular Volume 96.3 fL (80.0-100.0); Monocytes % (auto) 8.1 % (0.0-12.0); Nucleated Red Blood Cells % 0.2 %; Platelet Count (auto) 181 10^3/uL (140-450); Red Blood Cells 3.94 10^6/uL (4.5-5.90); Red Cell Distribution Width 16.1 % (11.8-14.3)
[2024-08-31 13:27] LABS: Potassium 6.3 mmol/L (3.5-5.1)
== END | disposition home or self-care (01) ==
LOC: LAB 10:38
PROVIDERS: ATTEND Internal Medicine Cardiovascular Disease
DX: C61 Malignant neoplasm of prostate (principal); I10 Essential (primary) hypertension; E11.9 Type 2 diabetes mellitus without complications; E55.9 Vitamin D deficiency, unspecified; D51.3 Other dietary vitamin B12 deficiency anemia; D64.9 Anemia, unspecified; R30.0 Dysuria; R00.2 Palpitations
CPT/HCPCS: 36415; 80048; 80061; 80076; 81003; 83036; 84153; 84403; 84443; 85025

== ENCOUNTER → 2024-12-30 | Outpatient (CLI) | payer MEDICARE, MEDICAID | END | disposition home or self-care (01) | LOC: Rad HDHVI 09:01 | PROVIDERS: ATTEND Internal Medicine Cardiovascular Disease | DX: M79.2 Neuralgia and neuritis, unspecified (principal) | CPT/HCPCS: 93925 ==

== ENCOUNTER → 2025-02-15 | Outpatient (CLI) | payer MEDICARE, MEDICAID ==
[~2025-02-15] MED LIST changes: +LEVO-849 PO; +PREG50CA PO; +RIVA10TA PO; +VERI5TAB PO
[2025-02-15 10:18] VITALS: BP 129/79; PULSE 65; RESP 17; O2SAT 95
[2025-02-15 10:29] VITALS: BP 126/75; PULSE 66; RESP 18; O2SAT 96
--- NOTE | 2025-02-15 11:57 | DVH ---
XY CHEST TWO VIEWS ROUTINE, HISTORY: PRE OP COMPARISON: XY CHEST TWO VIEWS ROUTINE on DOS: 07/06/24, XY CHEST TWO VIEWS ROUTINE on DOS: 03/11/23, XY CHEST TWO VIEWS ROUTINE on DOS: 12/25/22 XY CHEST TWO VIEWS ROUTINE on DOS: 07/06/24, XY CHEST TWO VIEWS ROUTINE on DOS: 03/11/23, XY CHEST TWO V IEWS ROUTINE on DOS: 12/25/22 TECHNICAL DATA: 1 view of the chest was obtained. FINDINGS: Lines and tubes: A cardiac pacer is seen. Cardiomediastinal silhouette: normal Pulmonary vasculature: normal Lung expansion: normal Lung airspace: Right basilar airspace opacity is seen. Lung interstitium: normal Pleura: normal Pneumothorax: no Bones: Unremarkable Other: no IMPRESSION: Right basilar airspace opacity is seen and likely atelectasis. No pneumothorax.
== END | disposition home or self-care (01) ==
LOC: Rad HDHVI 10:08
PROVIDERS: ATTEND Internal Medicine Cardiovascular Disease
DX: Z01.818 Encounter for other preprocedural examination (principal); I49.1 Atrial premature depolarization; I49.3 Ventricular premature depolarization; R94.31 Abnormal electrocardiogram [ECG] [EKG]; J98.4 Other disorders of lung; I73.9 Peripheral vascular disease, unspecified
CPT/HCPCS: 71046; 93005; G0463

== ENCOUNTER 2025-02-18 07:10 | Day surgery (SDC) | payer MEDICARE, MEDICAID ==
[2025-02-15 13:05] LABS: Chloride 104 mmol/L (98-107); Potassium 4.9 mmol/L (3.5-5.1); Sodium 140 mmol/L (136-145)
[2025-02-15 13:06] LABS: Anion Gap 8 (5-15); Calcium 10.1 mg/dL (8.7-10.4); Carbon Dioxide 28 mmol/L (20-31)
[2025-02-15 13:11] LABS: BUN/Creatinine Ratio 19.6 (10.0-20.0); Prothrombin Time 10.6 sec (9.3-11.8)
[2025-02-15 13:18] LABS: Blood Urea Nitrogen 36 mg/dL (9-23); Glucose 146 mg/dL (74-106)
[2025-02-15 13:35] LABS: Basophils # (auto) 0 10 ^3/uL (0-0.2); Eosinophils # (auto) 0.1 10 ^3/uL (0-0.8); Eosinophils % (auto) 1.7 % (0.0-7.0); Monocytes # (auto) 0.5 10 ^3/uL (0-1.3)
[2025-02-15 13:37] LABS: Basophils % (auto) 0.8 % (0.0-2.0); Hematocrit 35.9 % (41.0-53.0); Hemoglobin 12.7 g/dL (13.5-17.5); Lymphocytes # (auto) 1.3 10 ^3/uL (0.4-5.4); Lymphocytes % (auto) 22.5 % (10.0-50.0); Mean Corpuscular Hemoglobin 34.7 pg (28.0-32.0); Mean Corpuscular Hgb Conc. 35.4 g/dL (32.0-36.0); Mean Corpuscular Volume 98.1 fL (80.0-100.0); Monocytes % (auto) 8.7 % (0.0-12.0); Neutrophils # (auto) 3.9 10 ^3/uL (1.6-8.6); Neutrophils % (auto) 66.3 % (37.0-80.0); Nucleated Red Blood Cells % 0.7 %; Platelet Count (auto) 209 10^3/uL (140-450); Red Blood Cells 3.66 10^6/uL (4.5-5.90); Red Cell Distribution Width 14.4 % (11.8-14.3); White Blood Cell 5.9 10^3/uL (4.4-10.8)
[2025-02-18] VITALS (9 sets, daily range): BP systolic 96–125; BP diastolic 62–80; PULSE 65–66; RESP 11–19; TEMP 97.8; O2SAT 92–98
[~2025-02-18] VITALS: Ht 177.8 cm; Wt 92.5 kg
[~2025-02-18 07:10] MED LIST changes: -POTA-228 PO; -RIVA20TA PO; -VERI2.5T PO
[2025-02-18] MEDS ORDERED: IODIXANOL 320MG/ML 100ML BTL IV ONE (07:11)
[2025-02-18] MEDS: fentaNYL CITRATE 100 MCG/2 ML VL ONE (09:18)
[2025-02-18] MEDS: LIDOCAINE 2%HCL (LOCAL ANESTH.) INJ 20ML MDV ONE (09:18)
[2025-02-18] MEDS: ANGIOMAX 250 MG VIAL IV ONE (09:18)
[2025-02-18] MEDS: MIDAZOLAM HCL 2MG/2ML 2ml VIAL (1mg/ml) ONE (09:18)
[2025-02-18] MEDS: SODIUM CHL 0.9% 0 ML ONE (09:18)
--- NOTE | 2025-02-18 11:12 | DVHOP ---
DATE OF SURGERY: 02/18/2025 PROCEDURE PERFORMED: Selective left and right lower extremity angiography, together with a conscious sedation was given. ____ placed in the distal SFA. DESCRIPTION OF PROCEDURE: The patient was prepped and draped in a sterile condition. 1% Xylocaine used to anesthetize the right groin. Using a Cook needle, the right femoral artery was engaged with Seldinger technique, a 6-[place] sheath in the right femoral artery. Using the 6-[place] sheath, angiography of the right lower extremity was performed. Using the contralateral approach, we were able to get in the contralateral left lower extremity. Because the patient has very sluggish flow, we introduced an angled Terumo Glidewire and through which a straight ____ glide catheter was placed into the distal SFA. Angiography was performed. Then, pullback gradients were obtained. RESULTS: There were no significant pullback gradients on the left lower extremity. Angiography of the left and right lower extremity shows sluggish flow throughout, almost DEVEN grade 1 flow in both lower extremities. 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 The anterior tibial, posterior tibial and peroneal arteries were patent. Even though the peroneal arteries in both lower extremities were very, very small. CONCLUSION: The patient, although had very sluggish flow throughout both lower extremities, there were no discrete lesions that require any intervention at this time. Aggressive risk modification may be beneficial and anticoagulation, I believe, will be beneficial to the patient and even antiplatelet therapy because of the sluggish flow of the peripheral vasculature. John Lopez MD SA/HAO/VINAY TID: [id number] RECEIPT: [id number]
--- NOTE | 2025-02-26 11:19 | DVHDS ---
DATE OF DISCHARGE: 02/18/2025 DISCHARGE DIAGNOSES: The patient underwent lower extremity angiography bilaterally. This does show area of discrete lesions in both anatomy. However, the patient had very slow flow, almost DEVEN grade 1/2 flow throughout. That could account for the patient's symptoms of claudication, supply not keeping up with the demand when the patient is physically active. HOSPITAL COURSE: The patient with coronary artery disease, underwent coronary angiography. At this time, the patient is doing remarkably well. He is now being dischargd home. He had peripheral angiogram bilaterally and shows no discrete lesion, but very sluggish flow throughout. No catheter-based or surgical intervention is warranted for his peripheral vasculature. 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 I believe that is what is making him have a very sluggish flow. Cardiac output may also be low and that could also account for the slow flow phenomena. At this time, continued conservative medical management, anticoagulation should be initiated. However, no catheter-based surgical intervention is warranted at this time. At this time, anticoagulation should be considered including antiplatelet therapy. He may benefit from EECP. At this time, conservative medical management. Follow up with me in one week. Stable at that time discharge. DISPOSITION: Home. ACTIVITY: As instructed. DIET: 2 g sodium diet. John Lopez MD SA/ANASTASIA/SENIA TID: [id number] RECEIPT: [id number]
--- NOTE | 2025-02-26 11:19 | DVHHP ---
ADMIT DATE: 02/18/2025 HISTORY OF PRESENT ILLNESS: The patient, who is 84 years old, with: * History of hypertension. * History of previous coronary angiography with angioplasty. * History of peripheral vascular disease now with claudication symptoms. The patient is having severe claudication and initially I thought it was peripheral neuropathy, but the patient has been on gabapentin and Lyrica, despite which the patient continuing to have symptoms. History of atrial fibrillation, with a hypercoagulable state, currently on amiodarone, digoxin, Xarelto, Verquvo, improvement of small vessel disease. He also has renal insufficiency, chronic kidney disease stage 3 with a creatinine of 1.89. The patient with a history of diabetes, diabetic neuropathy, vasculopathy, nephropathy. Because of claudication symptoms, it is felt that the patient should undergo ____ angiography to define ____ anatomy. The patient has a combination of heart failure, both systolic and diastolic as well. FAMILY HISTORY: Negative. SOCIAL HISTORY: Negative. REVIEW OF SYSTEMS: He denies any fever, chills, melena, or hematochezia. No history of CVA. No history of movement disorder. No Parkinson's. Denies any irritable bowel syndrome or inflammatory bowel disease. Denies any history of any lung disease such as COPD or any restrictive lung disease. Denies any history of pericarditis. Denies any history of any trauma. No hematemesis. No history of hematuria. PHYSICAL EXAMINATION: VITAL SIGNS: Blood pressure is 148/76, pulse 70 and regular, O2 saturation 98% on room air. HEENT: Pupils are reactive. Funduscopic exam shows some hard exudates, otherwise unremarkable. No JVD. No papilledema noted. Sclerae anicteric. Oral mucosa moist. Posterior pharynx without any exudates. NECK: Supple. Carotid pulses are 2+ and symmetrical. Normal upstroke and contour. PULMONARY: Clear to auscultation in all lung gonzalez. CARDIOVASCULAR: Regular rate. A 2/6 systolic murmur along the left sternal border. ABDOMEN: Obese, unable to appreciate organomegaly. EXTREMITIES: All Doppler pulses bilaterally. ASSESSMENT AND PLAN: Thus, the patient has claudication symptoms, to undergo ____ angiography to define ____ anatomy. Further recommendations after. John Lopez MD SA/SAFIA/VINAY TID: [id number] RECEIPT: [id number]
== END 2025-02-18 13:02 | disposition home or self-care (01) ==
LOC: CATH 07:10
PROVIDERS: ATTEND Internal Medicine Cardiovascular Disease
DX: E11.51 Type 2 diabetes mellitus with diabetic peripheral angiopathy without gangrene (principal); I70.213 Atherosclerosis of native arteries of extremities with intermittent claudication, bilateral legs; I48.91 Unspecified atrial fibrillation; I13.0 Hypertensive heart and chronic kidney disease with heart failure and stage 1 through stage 4 chronic kidney disease, or unspecified chronic kidney disease; N18.30 Chronic kidney disease, stage 3 unspecified; I50.40 Unspecified combined systolic (congestive) and diastolic (congestive) heart failure; E11.22 Type 2 diabetes mellitus with diabetic chronic kidney disease; E11.21 Type 2 diabetes mellitus with diabetic nephropathy; Z79.890 Hormone replacement therapy; Z79.899 Other long term (current) drug therapy; Z82.49 Family history of ischemic heart disease and other diseases of the circulatory system
CPT/HCPCS: 36247; 36415; 75716; 80048; 85025; 85610; 85730; C1760; C1769; C1887; C1894; J2250; J3010; Q9967; 99152

== ENCOUNTER 2025-04-20 11:44 | Inpatient (IN) | payer MEDICARE, MEDICAID ==
[~2025-04-20] VITALS: Ht 177.8 cm; Wt 93.9 kg
[2025-04-20] MEDS: SODIUM CHLORIDE 0.9% 500 ML IV ONE (12:15)
--- NOTE | 2025-04-20 12:15 | ED.PDOC ---
General HPI Comments This is a 85 year old male brought in by [id number] and on the phone with son presenting to the ED with chief complaint of inability to urinate. Daughter reports that the patient has been experiencing generalized weakness with associated confusion and difficulty urinating since today, however, the patient has been fasting with no appetite for the past few days. Daughter relays that the patient visited [facility] in August 2024 and needed to have a Nash catheter placed due to having similar symptoms of inability to void. Patient states he is able to urinate a little bit when he forces it out. Patient denies any abdominal pain, dysuria, hematuria, fever, chills, or N/V/D. Time Seen by MD: 12:09 Primary Care Provider: DEVYN Reviewed notes: Nurses Notes, Medications, Allergies Allergies: Coded Allergies: NO KNOWN ALLERGIES (Unverified , 02/15/25) Home Meds Reported Medications Rivaroxaban (XARELTO) 10 Mg Tab, 1 TAB PO DAILY for s/p stents/stop on 02/17/25, #10 TAB 02/15/25 Pregabalin (Lyrica) 50 Mg Cap, 1 CAP PO BID for nerve pain, #60 CAP 02/15/25 Levothyroxine Sodium (SYNTHROID TABLET) 100 Mcg Tb, 1 TAB PO DAILY for LOW THYROID, #30 TAB 5 Refills 02/15/25 Vericiguat (Verquvo) 5 Mg Tab, 5 MG PO BID for CIRCULATION, TAB 02/15/25 Amiodarone HCl (Amiodarone Hydrochloride) 400 Mg Tab, 400 MG PO DAILY for arrhythmia, TAB 07/06/24 Bumetanide (Bumetanide) 1 Mg Tab, 1 MG PO DAILY for edema, MG 07/06/24 Empagliflozin (Jardiance) 25 Mg Tab, 25 MG PO QAM for DIABETES, TAB 07/06/24 Metoprolol Succinate (Toprol Xl) 50 Mg Tab, 1 TAB PO DAILY for HTN, #30 TAB 5 Refills 07/06/24 Digoxin (Digoxin) 125 Mcg Tab, 125 MCG PO DAILY for arrhythmia, TAB 07/06/24 Celecoxib (Celebrex) 100 Mg Cap, 2 CAP PO DAILY for ARTHRITIS PAIN 03/11/23 Zolpidem Tartrate (Ambien) 10 Mg Tab, 1 TAB PO QPM PRN for FOR INSOMNIA 03/11/23 Cholecalciferol (VITAMIN D3) 5,000 Unit Cap, 1 CAP PO DAILY for SUPPLEMENT 03/11/23 Acetaminophen (Acetaminophen) 325 Mg Tab, 1-2 TAB PO Q4HR PRN for MILD PAIN (1-3 PAIN SCALE) 01/24/23 Hydrocodone-Acetaminophen (Hydrocodone/Acetaminophen 10-325 mg) 1 Tab Tab, 1 TAB PO TID PRN for PAIN SCALE 7 THRU 10 12/31/20 Information Source: Patient, Relative ([id number] and Son) Mode of Arrival: Ambulatory Severity: Moderate Inability to void: Moderate Timing: Days Duration: Since onset Has not urinated for: Hours Prehospital treatment: None Onset: Spontaneous Symptoms: Inability to void History of: UTI Location: None Penile discharge: None Modifying factors: None associated signs and symptoms: Inability to Void Past Medical History PAST MEDICAL HISTORY: CHF, CVA, DM, High Lipids, HTN, OR, Thyroid, TIA Past Medical History (Other): Irregular heartbeat Surgical History: Pacemaker Family History Family History: Reviewed,noncontributory to illness Social History Smoker: Non-Smoker Alcohol: Denies ETOH Use Drugs: Denies Drug Use Lives In: Home Constitutional: reports: weakness; denies: chills, diaphoresis, fatigue, fever, malaise, sweats, others EENTM: denies: blurred vision, double vision, ear bleeding, ear discharge, ear drainage, ear pain, ear ringing, eye pain, eye redness, hearing loss, mouth pain, mouth swelling, nasal discharge, nose bleeding, nose congestion, nose pain, photophobia, tearing, throat pain, throat swelling, voice changes, others Respiratory: denies: cough, hemoptysis, orthopnea, SOB at rest, shortness of breath, SOB with excertion, stridor, wheezing, others Cardiovascular: denies: chest pain, dizzy spells, diaphoresis, Dyspnea on exertion, edema, irregular heart beat, left arm pain, lightheadedness, palpitations, PND, syncope, others Gastrointestinal: reports: poor appetite; denies: abdomen distended, abdominal pain, blood streaked bowels, constipated, diarrhea, dysphagia, difficulty swallowing, hematemesis, melena, nausea, poor fluid intake, rectal bleeding, rectal pain, vomiting, others Genitourinary: reports: others (Difficulty urinating); denies: burning, dysuria, flank pain, frequency, hematuria, incontinence, penile discharge, penile sore, pain, testicle pain, testicle swelling, urgency Neurological: reports: others (Confusion); denies: dizziness, fainting, headache, left sided numbness, left sided weakness, numbness, paresthesia, pre- existing deficit, right sided numbness, right sided weakness, seizure, speech problems, tingling, tremors, weakness Musculoskeletal: denies: back pain, gout, joint pain, joint swelling, muscle pain, muscle stiffness, neck pain, others Integumetry: denies: bruises, change in color, change in hair/nails, dryness, laceration, lesions, lumps, rash, wounds, others Allergic/Immunocompromised: denies: Difficulty Healing, Frequent Infections, Hives, Itching, others Hematologic/Lymphatic: denies: anemia, blood clots, easy bleeding, easy bruising, swollen glands, others Endocrine: denies: excessive hunger, excessive sweating, excessive thirst, excessive urination, flushing, intolerance to cold, intolerance to heat, unexplained weight gain, unexplained weight loss, others Psychiatric: denies: anxiety, bipolar disorder, depression, hopeless, panic disorder, schizophrenia, sleepless, suicidal, others All Other Systems: Reviewed and Negative Physical Exam General Appearance: Moderate Distress HEENT: Normal ENT Inspection, Pharynx Normal, TMs Normal Neck: Full Range of Motion, Non-Tender, Normal, Normal Inspection Respiratory: Chest Non-Tender, Lungs Clear, No Accessory Muscle Use, No Respiratory Distress, Normal Breath Sounds Cardiovascular: No Edema, No JVD, No Murmur, No Gallop, Normal Peripheral Pulses, Regular Rate/Rhythm Breast Exam: Deferred Gastrointestinal: No Organomegaly, Non Tender, No Pulsatile Mass, Normal Bowel Sounds, Soft Genitalia: Deferred Pelvic: Deferred Rectal: Deferred Extremities: No calf tenderness, Normal capillary refill, No pedal edema Musculoskeletal : Apperance: Normal 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 Was a procedure done?: No Differential Diagnosis Kidney stone (Female): N/A Urinary Problem (Male): Bladder Obstruction, Urethritis, UTI X-Ray, Labs, Meds, VS Vital Signs Date Time Temp Pulse Resp B/P (MAP) Pulse Ox O2 Delivery O2 Flow Rate FiO2 04/20/25 14:46 98.8 65 12 137/73 (94) 92 98.8 04/20/25 14:46 Room Air* 0 21 04/20/25 12:03 98.0 65 18 124/78 (93) 98 98.0 Lab Test 04/20/25 15:28 04/20/25 13:21 04/20/25 12:00 Range/Units POC Glucose 39 *L 70-106 mg/dl White Blood Count 6.0 4.4-10.8 10^3/uL Red Blood Count 4.97 4.5-5.90 10^6/uL Hemoglobin 16.1 13.5-17.5 g/dL Hematocrit 46.1 41.0-53.0 % Mean Corpuscular Volume 92.8 80.0-100.0 fL Mean Corpuscular Hemoglobin 32.4 H 28.0-32.0 pg Mean Corpuscular Hemoglobin Concent 34.9 32.0-36.0 g/dL Red Cell Distribution Width 14.0 11.8-14.3 % Platelet Count 202 140-450 10^3/uL Mean Platelet Volume 7.5 6.9-10.8 fL Neutrophils (%) (Auto) 65.4 37.0-80.0 % Lymphocytes (%) (Auto) 23.1 10.0-50.0 % Monocytes (%) (Auto) 9.7 0.0-12.0 % Eosinophils (%) (Auto) 1.1 0.0-7.0 % Basophils (%) (Auto) 0.7 0.0-2.0 % Neutrophils # (Auto) 3.9 1.6-8.6 10 ^3/uL Lymphocytes # (Auto) 1.4 0.4-5.4 10 ^3/uL Monocytes # (Auto) 0.6 0-1.3 10 ^3/uL Eosinophils # (Auto) 0.1 0-0.8 10 ^3/uL Basophils # (Auto) 0 0-0.2 10 ^3/uL Nucleated Red Blood Cells 0.4 % Sodium Level 138 136-145 mmol/L Potassium Level 5.9 *H 3.5-5.1 mmol/L Chloride Level 105 98-107 mmol/L Carbon Dioxide Level 26 20-31 mmol/L Anion Gap 7 5-15 Blood Urea Nitrogen 26 H 9-23 mg/dL Creatinine 1.36 H 0.700-1.30 mg/dL Glomerular Filtration Rate Calc 51 >90 mL/min BUN/Creatinine Ratio 19.1 10.0-20.0 Serum Glucose 155 H 74-106 mg/dL Calcium Level 9.9 8.7-10.4 mg/dL Troponin I High Sensitivity 16 </=54 ng/L Urine Color Yellow Yellow Urine Clarity Clear Clear Urine pH 6.0 5.0-9.0 Urine Specific Clover 1.025 1.001-1.035 Urine Protein Negative Negative Urine Ketones Negative Negative Urine Blood Negative Negative /uL Urine Nitrite Negative Negative Urine Bilirubin Negative Negative Urine Urobilinogen 4 H Negative mg/dL Urine Leukocyte Esterase Negative Negative /uL Urine RBC 1 0 - 3 /hpf Urine Microscopic WBC 2 0-3 /HPF Urine Squamous Epithelial Cells Few <5 /hpf Urine Bacteria None seen None Seen /hpf Urine Glucose 4+ H Normal mg/dL Current Medications Medications (Trade) Dose Ordered Sig/Rachel Route Start Time Stop Time Status Last Admin Sodium Chloride 500 ml @ 500 mls/hr Q1H ONCE IV 04/20/25 12:15 04/20/25 13:14 DC 04/20/25 12:15 Calcium Gluconate/ Sodium Chloride 50 ml @ 100 mls/hr ONCE ONCE IV 04/20/25 15:15 04/20/25 15:44 04/20/25 15:30 IV Hep-Lock was established The patient was given a bolus of normal saline at 500 cc The patient's chemistry panel came back with a BUN of 25 and a creatinine of 1.36 The patient is hyperkalemic at 5.9 The patient was given sodium bicarbonate as well as dextrose, insulin and calcium chloride The patient is being admitted at this time A nephrology consult will be obtained. The patient understands and agrees with the management. Images Reviewed?: Images reviewed and evaluated by me Time of 1ST Reevaluation: 15:43 Reevaluation 1ST: Unchanged Patient Education/Counseling: Diagnosis, Treatment, Prognosis Family Education/Counseling: Diagnosis, Treatment, Prognosis Additional Information Reviewed patient's previous visit(s): 01/07/23 for foreign body of right hand The following tests were ordered, and results were reviewed by me: CBC, BMP, UA, Troponin, EKG Additional information was gathered from interviewing the following independent historian: [id number] and Son I reviewed and agreed with the following test results read by other provider: None I discussed treatments and results with medical personnel and: PATIENT and family Comprehensive systems review obtained and negative except for what is stated in the HPI. SEPSIS Sepsis Screen Physician Orders Heplock Iv (04/20/25 12:10) Electrocardigram (04/20/25 12:10) Nash Catheters (04/20/25 ) Calcium Gluc 1,000mg/50ml-Ns (04/20/25 15:15) Vital Signs Date Time Temp Pulse Resp B/P (MAP) Pulse Ox O2 Delivery O2 Flow Rate FiO2 04/20/25 14:46 98.8 65 12 137/73 (94) 92 98.8 04/20/25 14:46 Room Air* 0 21 04/20/25 12:03 98.0 65 18 124/78 (93) 98 98.0 Laboratory Tests Test 04/20/25 13:21 White Blood Count 6.0 10^3/uL (4.4-10.8) Medications Medications Dose Ordered Sig/Rachel Route Start Time Stop Time Status Last Admin Dose Admin Calcium Gluconate/ Sodium Chloride 50 ml @ 100 mls/hr ONCE ONCE IV 04/20/25 15:15 04/20/25 15:44 04/20/25 15:30 Sodium Chloride 500 ml @ 500 mls/hr Q1H ONCE IV 04/20/25 12:15 04/20/25 13:14 DC 04/20/25 12:15 Departure 1 Departure Time of Disposition: 15:43 Impression: Primary Impression: Hyperkalemia Additional Impression: Generalized weakness Disposition: 09 ADMITTED INPATIENT Admit to: Tele Condition: Fair Critical Care Note Critical Care Time?: No Stability Stability form required: Yes Unstable for transfer: Telemetry monitoring (Telemetry monitoring required), ED Physician Assesment (Clinical assesment) Heart Score Heart Score: Heart Score Response (Comments) Value History N/A 0 EKG N/A 0 Age N/A 0 Risk Factors N/A 0 Troponin N/A 0 Total 0 I personally scribed for MODE PEÑA MD ([email or web address]) on 04/20/25 at 12:15. Electronically submitted by Marino Mayes ([email or web address]). I personally scribed for MODE PEÑA MD ([email or web address]) on 04/20/25 at 12:24. Electronically submitted by Marino Mayes ([email or web address]). MODE PEÑA MD Apr 20, 2025 12:15
[2025-04-20 12:42] LABS: Urine Bacteria None Seen /hpf (None Seen)
[2025-04-20 12:58] LABS: Urine Blood Negative /uL (Negative); Urine Clarity Clear (Clear); Urine Color Yellow (Yellow); Urine Protein, UAD Negative (Negative); Urine Specific Gravity 1.025 (1.001-1.035); Urine Squamous Epithelial Cell FEW /hpf (<5); Urine Urobilinogen 4 mg/dL (Negative); Urine WBC 2 /HPF (0-3)
[2025-04-20 13:54] LABS: Chloride 105 mmol/L (98-107); Sodium 138 mmol/L (136-145)
[2025-04-20 13:55] LABS: Anion Gap 7 (5-15); Calcium 9.9 mg/dL (8.7-10.4); Carbon Dioxide 26 mmol/L (20-31)
[2025-04-20 14:00] LABS: BUN/Creatinine Ratio 19.1 (10.0-20.0)
[2025-04-20 14:04] LABS: Blood Urea Nitrogen 26 mg/dL (9-23); Glucose 155 mg/dL (74-106)
[2025-04-20 14:05] LABS: Potassium 5.9 mmol/L (3.5-5.1)
[2025-04-20 14:35] LABS: Basophils # (auto) 0 10 ^3/uL (0-0.2); Basophils % (auto) 0.7 % (0.0-2.0); Eosinophils # (auto) 0.1 10 ^3/uL (0-0.8); Eosinophils % (auto) 1.1 % (0.0-7.0); Hematocrit 46.1 % (41.0-53.0); Hemoglobin 16.1 g/dL (13.5-17.5); Lymphocytes # (auto) 1.4 10 ^3/uL (0.4-5.4); Lymphocytes % (auto) 23.1 % (10.0-50.0); Mean Corpuscular Hemoglobin 32.4 pg (28.0-32.0); Mean Corpuscular Hgb Conc. 34.9 g/dL (32.0-36.0); Mean Corpuscular Volume 92.8 fL (80.0-100.0); Monocytes # (auto) 0.6 10 ^3/uL (0-1.3); Monocytes % (auto) 9.7 % (0.0-12.0); Neutrophils # (auto) 3.9 10 ^3/uL (1.6-8.6); Neutrophils % (auto) 65.4 % (37.0-80.0); Nucleated Red Blood Cells % 0.4 %; Platelet Count (auto) 202 10^3/uL (140-450); Red Blood Cells 4.97 10^6/uL (4.5-5.90)
[2025-04-20] MEDS: CALCIUM GLUC 1,000mg/50ml-NS 50 ML IV ONE (15:30)
[2025-04-20] MEDS: DEXTROSE (50%) 50ML SYRG IV ONE (15:38)
[2025-04-20] MEDS: InsuLIN REG 1unit/0.01ml Soln (100units/ml) IV ONE (15:39)
[2025-04-20] MEDS: SODIUM BICARB 8.4% 50Meq/50ml SYR Vial IV ONE (15:39)
[2025-04-20] MEDS ORDERED: ONDANSETRON HCL 4 MG/2 ML VIAL IV PRN (15:45)
[2025-04-20] MEDS ORDERED: DOCUSATE SOD 100 MG CAP PO PRN (15:45)
[2025-04-20] MEDS ORDERED: HYDROcodone-ACET 5/325MG TAB PO PRN (15:45)
[2025-04-20] MEDS ORDERED: ACETAMINOPHEN 325 MG TAB PO PRN (15:45)
[2025-04-20] MEDS ORDERED: DEXTROSE (50%) 50ML SYRG IV PRN (15:45)
[2025-04-20] MEDS: SODIUM CHLORIDE 0.9% 1,000 ML IV SCH (15:45)
[2025-04-20] MEDS: ACCU-CHEK COMFORT CURVE STRIP VI SCH (16:10)
[2025-04-20] MEDS: InsuLIN REG 1unit/0.01ml Soln (100units/ml) SC SCH (16:13)
--- NOTE | 2025-04-20 16:25 | DVHHP2 ---
History of Present Illness Reason for Visit: Generalized weakness History of Present Illness The patient is a 85-year-old male with multiple past medical history including CVA, CHF, MS, thyroid disease, and hypertension who presented to [facility] ED with complaint of generalized weakness. As reported by son, patient has been experiencing generalized weakness, confusion state, difficulty urinating, getting worse today that prompted this visit. As reported, patient has been fasting with no appetite for the past few days. Daughter states that patient has similar symptoms in August 2024 when he visited [facility] with plan to have a Nash catheter placed due to inability to void, now he is able to urinate a little bit when he force it out. Patient was seen and evaluated in the ED, laboratory data shows WBC 6.0, platelets 202, sodium 138, potassium 5.9, BUN 36, creatinine 1.36, glucose 155, calcium 9.9, troponin 16, blood pressure 137/73, heart rate 65, temperature 98.8 F, O2 saturation 92% on oxygen. Patient was given hyperkalemia protocol, please see medication orders section in the computer. On my assessment, son at bedside, patient denied chest pain, no headache, no dizziness, currently on oxygen, no nausea, no vomiting, no fever, no chills. Patient was admitted for further evaluation and medical management. Past Medical History CHF, CVA, DM, High Lipids, HTN, MS, Thyroid, TIA, Irregular heartbeat Past Surgical History Pacemaker Family History Reviewed, noncontributory to the management of this case. Past Social History The patient lives at home, denies smoking, alcohol or illicit drugs abuse. Review of Systems Constitutional: Yes: Weakness; No: Fever, Chills, Sweats, Malaise, Other Eyes: No: Pain, Vision change, Conjunctivae inflammation, Eyelid inflammation, Other, Redness ENT: No: Ear pain, Ear discharge, Nose pain, Nose discharge, Nose congestion, Mouth pain, Mouth swelling, Throat pain, Throat swelling, Other Respiratory: Shortness of breath; No: Cough, Dry, SOB with excertion, Wheezing, Hemoptysis, Pleuritic Pain, Sputum, Wheezing, Other Cardiovascular: No: Chest Pain, Palpitations, Orthopnea, Paroxysmal Noc. Dyspnea, Edema, Lt Headedness, Other Gastrointestinal: No: Nausea, Vomiting, Abdominal Pain, Diarrhea, Constipation, Melena, Hematochezia, Other Genitourinary: Dysuria (Difficulty urinating); No Frequency, No Incontinence, No Hematuria, No Retention, No Other Musculoskeletal: No: other, neck pain, shoulder pain, arm pain, back pain, hand pain, leg pain, foot pain Skin: No: Rash, Lesions, Jaundice, Bruising, Other Neurological: Confusion; No: Weakness, Numbness, Incoordination, Change in speech, Seizures, Other Allergies: Coded Allergies: NO KNOWN ALLERGIES (Unverified , 02/15/25) Medications Current Medications Medications Dose Ordered Sig/Rachel Route Start Time Stop Time Status Last Admin Dose Admin Atorvastatin Calcium 10 mg HS PO 04/20/25 22:00 Levothyroxine Sodium 100 mcg QAM@0600 PO 04/21/25 06:00 Carvedilol 3.125 mg Q12HR PO 04/20/25 22:00 Tamsulosin HCl 0.4 mg QPM PO 04/20/25 18:00 Diagnostic Test (Pha) 1 strip IQ4HR 04/20/25 16:00 04/20/25 16:10 1 STRIP Insulin Human Regular IQ4HR SC 04/20/25 16:00 04/20/25 16:13 3 UNITS Dextrose 50 ml UD PRN IV 04/20/25 15:45 Sodium Chloride 1,000 ml @ 60 mls/hr [id number] IV 04/20/25 15:45 Acetaminophen/ Hydrocodone Bitart 1 tab Q4HP PRN PO 04/20/25 15:45 Ondansetron HCl 4 mg Q4HP PRN IV 04/20/25 15:45 Docusate Sodium 100 mg BIDPRN PRN PO 04/20/25 15:45 Acetaminophen 650 mg Q6HP PRN PO 04/20/25 15:45 Exam Vital Signs Vital Signs Date Time Temp Pulse Resp B/P (MAP) Pulse Ox O2 Delivery O2 Flow Rate FiO2 04/20/25 14:46 98.8 65 12 137/73 (94) 92 98.8 04/20/25 14:46 Room Air* 0 21 General Appearance: Alert, Oriented X3, Cooperative, No acute distress HEENT: Atraumatic, PERRLA, EOMI, Mucous membr. moist/pink Respiratory: Normal air movement Cardiovascular: Regular rate, Normal S1, Normal S2, No murmurs Abdominal: Normal bowel sounds, Soft, No tenderness, No hepatospenomegaly, No masses Extremities: No clubbing, No cyanosis, No edema, Normal pulses, No tenderness/swelling Skin: No rashes, No breakdown, No significant lesion Neuro: Normal speech, Normal tone, Sensation intact, Cranial nerves 3-12 NL, Reflexes 2+, Other (Generalized weakness) Psych/Mental Status: Mental status NL, Mood NL Labs/Xrays Labs Test 04/20/25 15:30 04/20/25 13:21 04/20/25 12:00 Range/Units POC Glucose 132 H 70-106 mg/dl White Blood Count 6.0 4.4-10.8 10^3/uL Red Blood Count 4.97 4.5-5.90 10^6/uL Hemoglobin 16.1 13.5-17.5 g/dL Hematocrit 46.1 41.0-53.0 % Mean Corpuscular Volume 92.8 80.0-100.0 fL Mean Corpuscular Hemoglobin 32.4 H 28.0-32.0 pg Mean Corpuscular Hemoglobin Concent 34.9 32.0-36.0 g/dL Red Cell Distribution Width 14.0 11.8-14.3 % Platelet Count 202 140-450 10^3/uL Mean Platelet Volume 7.5 6.9-10.8 fL Neutrophils (%) (Auto) 65.4 37.0-80.0 % Lymphocytes (%) (Auto) 23.1 10.0-50.0 % Monocytes (%) (Auto) 9.7 0.0-12.0 % Eosinophils (%) (Auto) 1.1 0.0-7.0 % Basophils (%) (Auto) 0.7 0.0-2.0 % Neutrophils # (Auto) 3.9 1.6-8.6 10 ^3/uL Lymphocytes # (Auto) 1.4 0.4-5.4 10 ^3/uL Monocytes # (Auto) 0.6 0-1.3 10 ^3/uL Eosinophils # (Auto) 0.1 0-0.8 10 ^3/uL Basophils # (Auto) 0 0-0.2 10 ^3/uL Nucleated Red Blood Cells 0.4 % Sodium Level 138 136-145 mmol/L Potassium Level 5.9 *H 3.5-5.1 mmol/L Chloride Level 105 98-107 mmol/L Carbon Dioxide Level 26 20-31 mmol/L Anion Gap 7 5-15 Blood Urea Nitrogen 26 H 9-23 mg/dL Creatinine 1.36 H 0.700-1.30 mg/dL Glomerular Filtration Rate Calc 51 >90 mL/min BUN/Creatinine Ratio 19.1 10.0-20.0 Serum Glucose 155 H 74-106 mg/dL Calcium Level 9.9 8.7-10.4 mg/dL Troponin I High Sensitivity 16 </=54 ng/L Urine Color Yellow Yellow Urine Clarity Clear Clear Urine pH 6.0 5.0-9.0 Urine Specific Ferguson 1.025 1.001-1.035 Urine Protein Negative Negative Urine Ketones Negative Negative Urine Blood Negative Negative /uL Urine Nitrite Negative Negative Urine Bilirubin Negative Negative Urine Urobilinogen 4 H Negative mg/dL Urine Leukocyte Esterase Negative Negative /uL Urine RBC 1 0 - 3 /hpf Urine Microscopic WBC 2 0-3 /HPF Urine Squamous Epithelial Cells Few <5 /hpf Urine Bacteria None seen None Seen /hpf Urine Glucose 4+ H Normal mg/dL Assessment/Plan Assessment/Plan Hyperkalemia Acute renal injury Dysuria Generalized weakness Plan 1. Admit to telemetry unit 2. Breathing treatment 3. Pain control management 4. Management of fluids and electrolytes 5. Consultation for Urology/hospitalist 6. Diagnostic tests chest x-ray 7. DVT prophylaxis-on SCDs 8. Repeat labs CBC, CMP in a.m. 9. Continue with current medical management 10. Treatment plan discussed with patient and RN. Patient verbalized understanding. Plan discussed with: Patient, Other (RN) My Orders Orders - COSMO BULLOCK DNP Procedure Category Date Status Time Consistent DIET 04/20/25 Transmitted Carb(Ccho)Diabetes Dinner Atorvastatin (Lipitor) PHA 04/20/25 In Process 22:00 Thyroid Stimulating LAB 04/20/25 In Process Hormone 15:39 Levothyroxine Tablet PHA 04/21/25 In Process (Synthroid Tablet) 06:00 B-Type Natriuretic LAB 04/20/25 In Process Peptide 15:39 Carvedilol Tablet PHA 04/20/25 In Process (Coreg Tablet) 22:00 Tamsulosin PHA 04/20/25 In Process Hydrochloride (Flomax) 18:00 Glucose Blood PHA 04/20/25 In Process (Accu-Chek Comfort 16:00 Insulin R (Human) PHA 04/20/25 In Process (Insulin R) 16:00 Dextrose 50% Syringe PHA 04/20/25 In Process 15:45 Allergies JOHANNA 04/20/25 In Process 15:39 Code Status CODE 04/20/25 Transmitted 15:39 Sodium Chloride 0.9% PHA 04/20/25 In Process 15:45 Oxygen Per Hour RT 04/20/25 Transmitted 15:39 Hydrocodone-Acet PHA 04/20/25 In Process 5/325mg Tab (Vilas 15:45 Ondansetron Hcl PHA 04/20/25 In Process (Zofran) 15:45 Docusate Sodium PHA 04/20/25 In Process Capsule (Colace 15:45 Fall Risk Precautions JOHANNA 04/20/[address] 15:39 Complete Blood Count LAB 04/21/25 Verified 04:00 Comprehensive LAB 04/21/25 Verified Metabolic Panel 04:00 Condition: Serious JOHANNA 04/20/25 In Process 15:39 Acetaminophen Tablet PHA 04/20/25 In Process (Tylenol Tablet) 15:45 Maintain Bed Rest JOHANNA 04/20/25 In Process 15:39 Sequential JOHANNA 04/20/25 In Process Compression Device Problem List: (1) Hyperkalemia (2) Acute renal injury (3) Dysuria (4) Generalized weakness Date of Service: Apr 20, 2025 Billing Provider: COSMO BULLOCK DNP Common Visit Codes: 90145-[id number] INP/OBS CARE (HIGH) COSMO BULLOCK DNP Apr 20, 2025 16:25
[2025-04-20] MEDS ORDERED: NITROGLYCERIN 0.4 MG SL TAB SL PRN (16:30)
[2025-04-20] MEDS ORDERED: MORPHINE SULFATE INJ 2 MG/ml SYRG IV PRN (16:30)
[2025-04-20] MEDS: TAMSULOSIN HYDROCHLORIDE 0.4 MG CAP PO SCH (18:13)
[2025-04-20 19:32] VITALS: RESP 18
[2025-04-20 21:45] VITALS: BP 118/61; PULSE 66; RESP 18; TEMP 97.6; O2SAT 93
[2025-04-20 22:06] VITALS: BP 118/61; PULSE 66; RESP 18; TEMP 97.6; O2SAT 95
[2025-04-20] MEDS: ATORVASTATIN 20 MG TAB PO SCH (22:45)
[2025-04-20] MEDS: CARVEDILOL 3.125 MG TAB PO SCH (22:46)
[2025-04-21] VITALS (9 sets, daily range): BP systolic 118–132; BP diastolic 64–84; PULSE 61–66; RESP 15–18; TEMP 97.3–98.4; O2SAT 92–97
[2025-04-21] MEDS: LEVOTHYROXINE SODIUM 100 MCG TAB PO SCH (05:19)
[2025-04-21 08:25] LABS: Alanine Aminotransferase 28 U/L (7-40); Albumin 3.8 g/dL (3.2-4.8); Aspartate Aminotransferase 25 U/L (<34); BUN/Creatinine Ratio 26.8 (10.0-20.0); Bilirubin, Total 1.2 mg/dL (0.2-1.0); Calcium 9.4 mg/dL (8.7-10.4); Chloride 106 mmol/L (98-107)
[2025-04-21 08:26] LABS: Alkaline Phosphatase 130 U/L (46-116); Blood Urea Nitrogen 30 mg/dL (9-23); Glucose 141 mg/dL (74-106)
[2025-04-21 08:29] LABS: Basophils # (auto) 0 10 ^3/uL (0-0.2); Basophils % (auto) 0.7 % (0.0-2.0); Eosinophils # (auto) 0.1 10 ^3/uL (0-0.8); Eosinophils % (auto) 1.5 % (0.0-7.0); Hematocrit 39.7 % (41.0-53.0); Hemoglobin 14.1 g/dL (13.5-17.5); Lymphocytes # (auto) 1.2 10 ^3/uL (0.4-5.4); Lymphocytes % (auto) 18.7 % (10.0-50.0); Mean Corpuscular Hemoglobin 32.4 pg (28.0-32.0); Mean Corpuscular Hgb Conc. 35.6 g/dL (32.0-36.0); Mean Corpuscular Volume 91.2 fL (80.0-100.0); Monocytes # (auto) 0.7 10 ^3/uL (0-1.3); Monocytes % (auto) 11.4 % (0.0-12.0); Neutrophils # (auto) 4.3 10 ^3/uL (1.6-8.6); Neutrophils % (auto) 67.7 % (37.0-80.0); Nucleated Red Blood Cells % 0.3 %; Platelet Count (auto) 163 10^3/uL (140-450); Red Blood Cells 4.35 10^6/uL (4.5-5.90); Red Cell Distribution Width 14.1 % (11.8-14.3); White Blood Cell 6.3 10^3/uL (4.4-10.8)
[2025-04-21 08:52] LABS: Potassium 4.2 mmol/L (3.5-5.1); Sodium 139 mmol/L (136-145)
[2025-04-21 08:53] LABS: Anion Gap 10 (5-15); Carbon Dioxide 23 mmol/L (20-31)
--- NOTE | 2025-04-21 09:14 | DVHPN2 ---
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 AV BLOCK S/P PPI DIABETES VASCULOPATHY NEPHROPATHY NEUROPATHY HYPOTHYROIDISM HX OF CVA vital signs Vital Sign Date Time Temp Pulse Resp B/P (MAP) Pulse Ox O2 Delivery O2 Flow Rate FiO2 04/21/25 08:52 65 121/75 04/21/25 05:00 97.4 18 94 97.4 04/21/25 00:38 Room Air* 0 21 Total Intake and Output 04/20/25 04/20/25 04/21/25 15:00 23:00 07:00 Intake Total 500 ml 230 ml 350 ml Output Total 1200 ml Balance 500 ml 230 ml -850 ml medications Current Medications Medications Dose Ordered Sig/Rachel Route Start Time Stop Time Status Last Admin Dose Admin Atorvastatin Calcium 10 mg HS PO 04/20/25 22:00 04/20/25 22:45 10 MG Levothyroxine Sodium 100 mcg QAM@0600 PO 04/21/25 06:00 04/21/25 05:19 100 MCG Carvedilol 3.125 mg Q12HR PO 04/20/25 22:00 04/21/25 08:52 3.125 MG Tamsulosin HCl 0.4 mg QPM PO 04/20/25 18:00 04/20/25 18:13 0.4 MG Diagnostic Test (Pha) 1 strip IQ4HR 04/20/25 16:00 04/21/25 08:00 1 STRIP Insulin Human Regular IQ4HR SC 04/20/25 16:00 04/21/25 09:01 3 UNITS Dextrose 50 ml UD PRN IV 04/20/25 15:45 Sodium Chloride 1,000 ml @ 60 mls/hr [id number] IV 04/20/25 15:45 04/20/25 15:45 60 MLS/HR Acetaminophen/ Hydrocodone Bitart 1 tab Q4HP PRN PO 04/20/25 15:45 Ondansetron HCl 4 mg Q4HP PRN IV 04/20/25 15:45 Docusate Sodium 100 mg BIDPRN PRN PO 04/20/25 15:45 Acetaminophen 650 mg Q6HP PRN PO 04/20/25 15:45 Nitroglycerin 0.4 mg Q5MINP PRN SL 04/20/25 16:30 Morphine Sulfate 2 mg Q30M PRN IV 04/20/25 16:30 laboratory and microbiology Laboratory Tests 04/21/25 06:47 Test 04/21/25 06:47 Range/Units Serum Glucose 141 H 74-106 mg/dL Problem List GENERALIZED WEAKNESS HYPERKALEMIA VOLUME DEPLETION PMH; 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
--- NOTE | 2025-04-21 10:00 | DVH ---
CT ABDOMEN AND PELVIS WITHOUT CONTRAST: HISTORY: obstructive uropathy [facility] CONTRAST: IV contrast: None TECHNIQUE: Spiral CT performed from the dome of the diaphragm to the pubic symphysis without IV contr ast. Dose reduction technique was used on this scan by utilizing automated exposure control, adjustment of the mA and/or kV according to the patient size. DICOM format image data available to non-affiliated external healthcare facilities or entities on a secure, media free, reciprocally searchable basis wit h patient authorization for at least a 12 month period after the study. 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 Subsegmental atelectasis within the right lower lobe. Left atrial chamber is dilated measuring 5.6 cm . Partially imaged pacer wires. Few layering gallstones. The liver, spleen, pancreas, and adrenal glands are unremarkable. 2.8 cm right lower pole renal stone. Bilateral parapelvic renal cysts are noted measuring up to 2.5 c m on the right and 1 cm on the left. Urinary bladder is decompressed with a espitia catheter. The prost ate is mildly enlarged measuring 5.2 cm in transverse dimension. Small hiatal hernia. Small bowel is unremarkable. Large colonic and rectal stool burden. Minimal dive rticulosis. Tortuous abdominal aorta with scattered atherosclerotic calcifications. Bones are demineralized. Moderate multi level discogenic and spondylitic degenerative changes within the spine. IMPRESSION: 1. Parapelvic small cyst bilaterally without hydronephrosis or renal stones. 2. Decompressed and thickened urinary bladder with a espitia catheter which may be sequela of chronic b ladder outlet obstruction 3. Mild prostatomegaly 4. Large colonic stool burden 5. Cholelithiasis
--- NOTE | 2025-04-21 12:37 | DVHINCON2 ---
Date of service: Apr 21, 2025 Referring Physician Hospitalist Reason for Consultation Urinary retention/ Patient has Nash catheter. History of Present Illness 85 year old male brought in by [id number] and on the phone with son presenting to the ED with chief complaint of inability to urinate. Daughter reports that the patient has been experiencing generalized weakness with associated confusion and difficulty urinating since today, however, the patient has been fasting with no appetite for the past few days. Daughter relays that the patient visited [facility] in August 2024 and needed to have a Nash catheter placed due to having similar symptoms of inability to void. Patient states he is able to urinate a little bit when he forces it out. Patient denies any abdominal pain, dysuria, hematuria, fever, chills, or N/V/D. Primary Care Provider: DEVYN Reviewed notes: Nurses Notes, Medications, Allergies Allergies: Coded Allergies: NO KNOWN ALLERGIES (Unverified , 02/15/25) Home Meds Reported Medications Rivaroxaban (XARELTO) 10 Mg Tab, 1 TAB PO DAILY for s/p stents/stop on 02/17/25, #10 TAB 02/15/25 Pregabalin (Lyrica) 50 Mg Cap, 1 CAP PO BID for nerve pain, #60 CAP 02/15/25 Levothyroxine Sodium (SYNTHROID TABLET) 100 Mcg Tb, 1 TAB PO DAILY for LOW THYROID, #30 TAB 5 Refills 02/15/25 Vericiguat (Verquvo) 5 Mg Tab, 5 MG PO BID for CIRCULATION, TAB 02/15/25 Amiodarone HCl (Amiodarone Hydrochloride) 400 Mg Tab, 400 MG PO DAILY for arrhythmia, TAB 07/06/24 Bumetanide (Bumetanide) 1 Mg Tab, 1 MG PO DAILY for edema, MG 07/06/24 Empagliflozin (Jardiance) 25 Mg Tab, 25 MG PO QAM for DIABETES, TAB 07/06/24 Metoprolol Succinate (Toprol Xl) 50 Mg Tab, 1 TAB PO DAILY for HTN, #30 TAB 5 Refills 07/06/24 Digoxin (Digoxin) 125 Mcg Tab, 125 MCG PO DAILY for arrhythmia, TAB 07/06/24 Celecoxib (Celebrex) 100 Mg Cap, 2 CAP PO DAILY for ARTHRITIS PAIN 03/11/23 Zolpidem Tartrate (Ambien) 10 Mg Tab, 1 TAB PO QPM PRN for FOR INSOMNIA 03/11/23 Cholecalciferol (VITAMIN D3) 5,000 Unit Cap, 1 CAP PO DAILY for SUPPLEMENT 03/11/23 Acetaminophen (Acetaminophen) 325 Mg Tab, 1-2 TAB PO Q4HR PRN for MILD PAIN (1-3 PAIN SCALE) 01/24/23 Hydrocodone-Acetaminophen (Hydrocodone/Acetaminophen 10-325 mg) 1 Tab Tab, 1 TAB PO TID PRN for PAIN SCALE 7 THRU 10 12/31/20 Information Source: Patient, Relative ([id number] and Son) Mode of Arrival: Ambulatory Severity: Moderate Inability to void: Moderate Timing: Days Duration: Since onset Has not urinated for: Hours Prehospital treatment: None Onset: Spontaneous Symptoms: Inability to void History of: UTI Location: None Penile discharge: None Modifying factors: None associated signs and symptoms: Inability to Void Past Medical History CHF, CVA, DM, High Lipids, HTN, DE, Thyroid, TIA Past Medical History (Other): Irregular heartbeat Past Surgical History Pacemaker Family History: Cardiovascular disease G8 MOTHER G8 FATHER Ischemic heart disease Allergies: Coded Allergies: NO KNOWN ALLERGIES (Unverified , 02/15/25) Home Meds Reported Medications Rivaroxaban (XARELTO) 10 Mg Tab, 1 TAB PO DAILY for s/p stents/stop on 02/17/25, #10 TAB 02/15/25 Pregabalin (Lyrica) 50 Mg Cap, 1 CAP PO BID for nerve pain, #60 CAP 02/15/25 Levothyroxine Sodium (SYNTHROID TABLET) 100 Mcg Tb, 1 TAB PO DAILY for LOW THYROID, #30 TAB 5 Refills 02/15/25 Vericiguat (Verquvo) 5 Mg Tab, 5 MG PO BID for CIRCULATION, TAB 02/15/25 Amiodarone HCl (Amiodarone Hydrochloride) 400 Mg Tab, 400 MG PO DAILY for arrhythmia, TAB 07/06/24 Bumetanide (Bumetanide) 1 Mg Tab, 1 MG PO DAILY for edema, MG 07/06/24 Empagliflozin (Jardiance) 25 Mg Tab, 25 MG PO QAM for DIABETES, TAB 07/06/24 Metoprolol Succinate (Toprol Xl) 50 Mg Tab, 1 TAB PO DAILY for HTN, #30 TAB 5 Refills 07/06/24 Digoxin (Digoxin) 125 Mcg Tab, 125 MCG PO DAILY for arrhythmia, TAB 07/06/24 Celecoxib (Celebrex) 100 Mg Cap, 2 CAP PO DAILY for ARTHRITIS PAIN 03/11/23 Zolpidem Tartrate (Ambien) 10 Mg Tab, 1 TAB PO QPM PRN for FOR INSOMNIA 03/11/23 Cholecalciferol (VITAMIN D3) 5,000 Unit Cap, 1 CAP PO DAILY for SUPPLEMENT 03/11/23 Acetaminophen (Acetaminophen) 325 Mg Tab, 1-2 TAB PO Q4HR PRN for MILD PAIN (1-3 PAIN SCALE) 01/24/23 Hydrocodone-Acetaminophen (Hydrocodone/Acetaminophen 10-325 mg) 1 Tab Tab, 1 TAB PO TID PRN for PAIN SCALE 7 THRU 10 12/31/20 Current Medications Current Medications Medications (Trade) Dose Ordered Sig/Rachel Route PRN Reason Start Time Stop Time Status Last Admin Atorvastatin Calcium (Lipitor) 10 mg HS PO 04/20/25 22:00 04/20/25 22:45 Levothyroxine Sodium (Synthroid Tablet) 100 mcg QAM@0600 PO 04/21/25 06:00 04/21/25 05:19 Carvedilol (Coreg Tablet) 3.125 mg Q12HR PO 04/20/25 22:00 04/21/25 08:52 Tamsulosin HCl (Flomax) 0.4 mg QPM PO 04/20/25 18:00 04/20/25 18:13 Diagnostic Test (Pha) (Accu-Chek Comfort Curve T) 1 strip IQ4HR 04/20/25 16:00 04/21/25 08:00 Insulin Human Regular (InsuLIN R) IQ4HR SC 04/20/25 16:00 04/21/25 09:01 Dextrose 50 ml UD PRN IV Blood Sugar LESS THAN 60 04/20/25 15:45 Sodium Chloride 1,000 ml @ 60 mls/hr [id number] IV 04/20/25 15:45 04/20/25 15:45 Acetaminophen/ Hydrocodone Bitart (Whick 5/325MG Tab) 1 tab Q4HP PRN PO MODERATE PAIN (4-6 PAIN SCALE) 04/20/25 15:45 Ondansetron HCl (Zofran) 4 mg Q4HP PRN IV NAUSEA / VOMITING 04/20/25 15:45 Docusate Sodium (Colace Capsule) 100 mg BIDPRN PRN PO FOR CONSTIPATION 04/20/25 15:45 Acetaminophen (Tylenol Tablet) 650 mg Q6HP PRN PO PAIN SCALE 1-3 OR TEMP>100.4 04/20/25 15:45 Nitroglycerin (Ntrostat Sublingual) 0.4 mg Q5MINP PRN SL FOR CHEST PAIN 04/20/25 16:30 Morphine Sulfate 2 mg Q30M PRN IV FOR CHEST PAIN 04/20/25 16:30 Review of Systems Constitutional: reports: weakness; denies: chills, diaphoresis, fatigue, fever, malaise, sweats, others EENTM: denies: blurred vision, double vision, ear bleeding, ear discharge, ear drainage, ear pain, ear ringing, eye pain, eye redness, hearing loss, mouth pain, mouth swelling, nasal discharge, nose bleeding, nose congestion, nose pain, photophobia, tearing, throat pain, throat swelling, voice changes, others Respiratory: denies: cough, hemoptysis, orthopnea, SOB at rest, shortness of breath, SOB with excertion, stridor, wheezing, others Cardiovascular: denies: chest pain, dizzy spells, diaphoresis, Dyspnea on exertion, edema, irregular heart beat, left arm pain, lightheadedness, palpitations, PND, syncope, others Gastrointestinal: reports: poor appetite; denies: abdomen distended, abdominal pain, blood streaked bowels, constipated, diarrhea, dysphagia, difficulty swallowing, hematemesis, melena, nausea, poor fluid intake, rectal bleeding, rectal pain, vomiting, others Genitourinary: reports: others (Difficulty urinating); denies: burning, dysuria , flank pain, frequency, hematuria, incontinence, penile discharge, penile sore, pain, testicle pain, testicle swelling, urgency Neurological: reports: others (Confusion); denies: dizziness, fainting, headache, left sided numbness, left sided weakness, numbness, paresthesia, pre- existing deficit, right sided numbness, right sided weakness, seizure, speech problems, tingling, tremors, weakness Musculoskeletal: denies: back pain, gout, joint pain, joint swelling, muscle pain, muscle stiffness, neck pain, others Integumetry: denies: bruises, change in color, change in hair/nails, dryness, laceration, lesions, lumps, rash, wounds, others Allergic/Immunocompromised: denies: Difficulty Healing, Frequent Infections, Hives, Itching, others Hematologic/Lymphatic: denies: anemia, blood clots, easy bleeding, easy bruising, swollen glands, others Endocrine: denies: excessive hunger, excessive sweating, excessive thirst, excessive urination, flushing, intolerance to cold, intolerance to heat, unex plained weight gain, unexplained weight loss, others Psychiatric: denies: anxiety, bipolar disorder, depression, hopeless, panic disorder, schizophrenia, sleepless, suicidal, others All Other Systems: Reviewed and Negative Vital Signs Vital Signs Date Time Temp Pulse Resp B/P (MAP) Pulse Ox O2 Delivery O2 Flow Rate FiO2 04/21/25 09:00 97.3 65 17 132/77 (95) 92 97.3 04/21/25 08:00 Room Air* 0 21 Physical Exam General Appearance: Moderate Distress HEENT: Normal ENT Inspection, Pharynx Normal, TMs Normal Neck: Full Range of Motion, Non-Tender, Normal, Normal Inspection Respiratory: Chest Non-Tender, Lungs Clear, No Accessory Muscle Use, No Respiratory Distress, Normal Breath Sounds Cardiovascular: No Edema, No JVD, No Murmur, No Gallop, Normal Peripheral Pulses, Regular Rate/Rhythm Breast Exam: Deferred Gastrointestinal: No Organomegaly, Non Tender, No Pulsatile Mass, Normal Bowel Sounds, Soft Genitalia: Nash catheter in place Pelvic: Deferred Rectal: Deferred Extremities: No calf tenderness, Normal capillary refill, No pedal edema Musculoskeletal : Apperance: Normal Neurologic: 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 II-XII nml as Tested, Motor Weakness, Normal Affect, Normal Mood, No Sensory Deficits Cerebellar Function: Normal Reflexes: Normal Skin: Dry, Normal Color, Warm Lymphatic: No Adenopathy Labs/Diagnostic Data Labs Test 04/21/25 08:43 04/21/25 06:47 04/20/25 13:21 04/20/25 12:00 Range/Units POC Glucose 183 H 70-106 mg/dl White Blood Count 6.3 4.4-10.8 10^3/uL Red Blood Count 4.35 L 4.5-5.90 10^6/uL Hemoglobin 14.1 13.5-17.5 g/dL Hematocrit 39.7 #L 41.0-53.0 % Mean Corpuscular Volume 91.2 80.0-100.0 fL Mean Corpuscular Hemoglobin 32.4 H 28.0-32.0 pg Mean Corpuscular Hemoglobin Concent 35.6 32.0-36.0 g/dL Red Cell Distribution Width 14.1 11.8-14.3 % Platelet Count 163 140-450 10^3/uL Mean Platelet Volume 7.6 6.9-10.8 fL Neutrophils (%) (Auto) 67.7 37.0-80.0 % Lymphocytes (%) (Auto) 18.7 10.0-50.0 % Monocytes (%) (Auto) 11.4 0.0-12.0 % Eosinophils (%) (Auto) 1.5 0.0-7.0 % Basophils (%) (Auto) 0.7 0.0-2.0 % Neutrophils # (Auto) 4.3 1.6-8.6 10 ^3/uL Lymphocytes # (Auto) 1.2 0.4-5.4 10 ^3/uL Monocytes # (Auto) 0.7 0-1.3 10 ^3/uL Eosinophils # (Auto) 0.1 0-0.8 10 ^3/uL Basophils # (Auto) 0 0-0.2 10 ^3/uL Nucleated Red Blood Cells 0.3 % Sodium Level 139 136-145 mmol/L Potassium Level 4.2 3.5-5.1 mmol/L Chloride Level 106 98-107 mmol/L Carbon Dioxide Level 23 20-31 mmol/L Anion Gap 10 5-15 Blood Urea Nitrogen 30 H 9-23 mg/dL Creatinine 1.12 0.700-1.30 mg/dL Glomerular Filtration Rate Calc 64 >90 mL/min BUN/Creatinine Ratio 26.8 H 10.0-20.0 Serum Glucose 141 H 74-106 mg/dL Calcium Level 9.4 8.7-10.4 mg/dL Total Bilirubin 1.2 H 0.2-1.0 mg/dL Aspartate Amino Transferase (AST) 25 <34 U/L Alanine Aminotransferase (ALT) 28 7-40 U/L Alkaline Phosphatase 130 H 46-116 U/L Total Protein 6.0 5.7-8.2 g/dL Albumin 3.8 3.2-4.8 g/dL Troponin I High Sensitivity 16 </=54 ng/L B-Type Natriuretic Peptide 114.01 0-100 pg/mL Thyroid Stimulating Hormone (TSH) 4.70 0.55-4.78 uIU/mL Urine Color Yellow Yellow Urine Clarity Clear Clear Urine pH 6.0 5.0-9.0 Urine Specific [place] 1.025 1.001-1.035 Urine Protein Negative Negative Urine Ketones Negative Negative Urine Blood Negative Negative /uL Urine Nitrite Negative Negative Urine Bilirubin Negative Negative Urine Urobilinogen 4 H Negative mg/dL Urine Leukocyte Esterase Negative Negative /uL Urine RBC 1 0 - 3 /hpf Urine Microscopic WBC 2 0-3 /HPF Urine Squamous Epithelial Cells Few <5 /hpf Urine Bacteria None seen None Seen /hpf Urine Glucose 4+ H Normal mg/dL Assessment Urinary retention BPH Plan/Recommendation Nash to gravity and leg bag for discharge PSA Plan discussed with: Patient, Other MAK DEVINE MD Apr 21, 2025 12:37
--- NOTE | 2025-04-21 13:56 | ECG ---
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
[2025-04-21] MEDS ORDERED: DEXTROSE (50%) 50ML SYRG IV PRN (15:30)
--- NOTE | 2025-04-21 15:33 | DVHPN2 ---
Progress Note Date Seen: Apr 21, 2025 Medical Necessity Reason Pt with a Central, PICC or Fol: Yes The following are medically ne: Espitia Catheter Reason for espitia catheter: Bladder Retention/Obstruc, Strict I&O Subjective Patient reports: No new complaints Review of Systems: HEENT:Normal, CVS:Normal, RESPIRATORY:Normal, GI:Normal, :Normal, MSK:Normal, NEURO:Normal Objective vital signs Vital Sign Date Time Temp Pulse Resp B/P (MAP) Pulse Ox O2 Delivery O2 Flow Rate FiO2 04/21/25 12:47 97.7 61 15 123/84 (97) 97 97.7 04/21/25 08:00 Room Air* 0 21 Total Intake and Output 04/20/25 04/20/25 04/21/25 15:00 23:00 07:00 Intake Total 500 ml 230 ml 350 ml Output Total 1200 ml Balance 500 ml 230 ml -850 ml medications Current Medications Medications Dose Ordered Sig/Rachel Route Start Time Stop Time Status Last Admin Dose Admin Levothyroxine Sodium 100 mcg QAM@0600 PO 04/21/25 06:00 04/21/25 05:19 100 MCG Carvedilol 3.125 mg Q12HR PO 04/20/25 22:00 04/21/25 08:52 3.125 MG Tamsulosin HCl 0.4 mg QPM PO 04/20/25 18:00 04/20/25 18:13 0.4 MG Dextrose 50 ml UD PRN IV 04/20/25 15:45 Acetaminophen/ Hydrocodone Bitart 1 tab Q4HP PRN PO 04/20/25 15:45 Ondansetron HCl 4 mg Q4HP PRN IV 04/20/25 15:45 Docusate Sodium 100 mg BIDPRN PRN PO 04/20/25 15:45 Acetaminophen 650 mg Q6HP PRN PO 04/20/25 15:45 Nitroglycerin 0.4 mg Q5MINP PRN SL 04/20/25 16:30 Morphine Sulfate 2 mg Q30M PRN IV 04/20/25 16:30 Atorvastatin Calcium 20 mg HS PO 04/21/25 22:00 UNV Diagnostic Test (Pha) 1 strip ACHS 04/21/25 17:00 UNV Insulin Human Regular ACHS SC 04/21/25 17:00 UNV Examination: GENERAL:Normal, HEENT:Normal, NECK:Normal, LUNGS:Normal, CVS:Normal, ABDOMEN:Normal, MSK:Normal, SKIN:Normal, NEURO:Normal, :Normal laboratory and microbiology Laboratory Tests 04/21/25 06:47 Test 04/21/25 06:47 Range/Units Serum Glucose 141 H 74-106 mg/dL Problem List/Assessment/Plan Problem List/Assessment/Plan #1 hyperkalemia: improved #2 s/p pacer/ aicd #3 a fib with secondary hypercoagulable state: eliquis, amiodarone #4 pvd #5 cad s/p stent #6 chronic systolic heart failure #7 bph #8 hypothyroidism advance care planning- full code-time spent 18 mins Plan discussed with: Patient My Orders My Orders Orders - VAL BRARERA MD Procedure Category Date Status Time Atorvastatin (Lipitor) PHA 04/21/25 Transmitted 22:00 Glucose Blood PHA 04/21/25 Transmitted (Accu-Chek Comfort 17:00 Mild Sliding Scale PHA 04/21/25 Transmitted 17:00 Dextrose 50% Syringe PHA 04/21/25 Transmitted 15:30 Pt Request For Service PT 04/21/25 Transmitted 15:24 Pregabalin Capsule PHA 04/21/25 Transmitted (Lyrica Capsule) 22:00 Empagliflozin PHA 04/22/25 Transmitted (Jardiance) 10:00 Amiodarone Tablet PHA 04/22/25 Transmitted (Cordarone Tablet) 10:00 Basic Metabolic Panel LAB 04/22/25 Verified 06:00 Complete Blood Count LAB 04/22/25 Verified 06:00 Chest Portable XY 04/21/25 Transmitted 15:24 Apixaban (Eliquis) PHA 04/21/25 Verified 22:00 Date of Service: Apr 21, 2025 Billing Provider: VAL BARRERA MD Common Visit Codes: [id number] INP/OBS CARE(HIGH) Secondary Visit Codes: [id number] CARE PLAN 30 MINUTES VAL BARRERA MD Apr 21, 2025 15:33
--- NOTE | 2025-04-21 16:17 | DVH ---
CHEST RADIOGRAPH Indication: chf Technique: Single frontal view of the chest was obtained Comparison: XY CHEST XRAY 1 VIEW on DOS: 03/15/23, XY CHEST PORTABLE on DOS: 03/14/23, CHEST PORTABLE o n DOS: 06/14/22, XY CHEST TWO VIEWS ROUTINE on DOS: 02/15/25 FINDINGS: Lines and tubes: A cardiac pacer is seen. Cardiomediastinal silhouette: normal Pulmonary vasculature: normal Lung expansion: normal Lung airspace: Right basilar airspace opacity is seen. Lung interstitium: normal Pleura: normal Pneumothorax: no Bones: Unremarkable Other: no IMPRESSION: Right basilar airspace opacity is seen and likely atelectasis. No pneumothorax.
[2025-04-21] MEDS: ACCU-CHEK COMFORT CURVE STRIP VI SCH (17:00)
[2025-04-21] MEDS: InsuLIN REG 1unit/0.01ml Soln (100units/ml) SC SCH (17:00)
[2025-04-21] MEDS: APIXABAN 2.5 MG TAB PO SCH (21:33)
[2025-04-21] MEDS: PREGABALIN 25 MG CAP PO SCH (21:34)
[2025-04-21] MEDS: ATORVASTATIN 20 MG TAB PO SCH (21:34)
[2025-04-22 05:00] VITALS: BP 101/53; PULSE 62; RESP 18; TEMP 97.4; O2SAT 96
[2025-04-22 06:51] LABS: Anion Gap 10 (5-15); Carbon Dioxide 24 mmol/L (20-31); Chloride 105 mmol/L (98-107); Sodium 139 mmol/L (136-145)
[2025-04-22 06:52] LABS: Calcium 9.6 mg/dL (8.7-10.4)
[2025-04-22 06:58] LABS: Blood Urea Nitrogen 24 mg/dL (9-23); Glucose 151 mg/dL (74-106)
[2025-04-22 07:07] LABS: PSA Free 0.21 ng/mL; Prostate Specific Antigen 0.5 ng/mL (0.0-4.0)
[2025-04-22 07:29] LABS: Basophils # (auto) 0 10 ^3/uL (0-0.2); Basophils % (auto) 0.5 % (0.0-2.0); Eosinophils # (auto) 0.1 10 ^3/uL (0-0.8); Eosinophils % (auto) 1.9 % (0.0-7.0); Hematocrit 39.3 % (41.0-53.0); Hemoglobin 13.9 g/dL (13.5-17.5); Lymphocytes # (auto) 1.4 10 ^3/uL (0.4-5.4); Lymphocytes % (auto) 25.3 % (10.0-50.0); Mean Corpuscular Hemoglobin 32.3 pg (28.0-32.0); Mean Corpuscular Hgb Conc. 35.5 g/dL (32.0-36.0); Mean Corpuscular Volume 91.1 fL (80.0-100.0); Monocytes # (auto) 0.7 10 ^3/uL (0-1.3); Monocytes % (auto) 12.5 % (0.0-12.0); Neutrophils # (auto) 3.3 10 ^3/uL (1.6-8.6); Neutrophils % (auto) 59.8 % (37.0-80.0); Nucleated Red Blood Cells % 0.5 %; Platelet Count (auto) 162 10^3/uL (140-450); Red Blood Cells 4.31 10^6/uL (4.5-5.90); Red Cell Distribution Width 14.3 % (11.8-14.3); White Blood Cell 5.5 10^3/uL (4.4-10.8)
[2025-04-22 08:00] VITALS: PULSE 65; RESP 19; O2SAT 93
[2025-04-22 09:05] VITALS: BP 107/73; PULSE 65; RESP 19; TEMP 96.8; O2SAT 93
[2025-04-22] MEDS: EMPAGLIFLOZIN 10 MG TAB PO SCH (10:27)
[2025-04-22] MEDS: AMIODARONE HCL 200 MG TAB PO SCH (10:29)
--- NOTE | 2025-04-22 11:23 | DVHPN2 ---
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 3 AV BLOCK S/P PPI DIABETES VASCULOPATHY NEPHROPATHY NEUROPATHY HYPOTHYROIDISM HX OF CVA vital signs Vital Sign Date Time Temp Pulse Resp B/P (MAP) Pulse Ox O2 Delivery O2 Flow Rate FiO2 04/22/25 10:29 65 107/73 04/22/25 09:05 96.8 19 93 96.8 04/21/25 20:00 Room Air* 0 21 Total Intake and Output 04/21/25 04/21/25 04/22/25 15:00 23:00 07:00 Intake Total 800 ml 775 ml Output Total 650 ml 1150 ml Balance 150 ml -375 ml medications Current Medications Medications Dose Ordered Sig/Rachel Route Start Time Stop Time Status Last Admin Dose Admin Levothyroxine Sodium 100 mcg QAM@0600 PO 04/21/25 06:00 04/22/25 05:38 100 MCG Carvedilol 3.125 mg Q12HR PO 04/20/25 22:00 04/22/25 10:29 3.125 MG Tamsulosin HCl 0.4 mg QPM PO 04/20/25 18:00 04/21/25 17:53 0.4 MG Acetaminophen/ Hydrocodone Bitart 1 tab Q4HP PRN PO 04/20/25 15:45 Ondansetron HCl 4 mg Q4HP PRN IV 04/20/25 15:45 Docusate Sodium 100 mg BIDPRN PRN PO 04/20/25 15:45 Acetaminophen 650 mg Q6HP PRN PO 04/20/25 15:45 Nitroglycerin 0.4 mg Q5MINP PRN SL 04/20/25 16:30 Morphine Sulfate 2 mg Q30M PRN IV 04/20/25 16:30 Atorvastatin Calcium 20 mg HS PO 04/21/25 22:00 04/21/25 21:34 20 MG Diagnostic Test (Pha) 1 strip ACHS 04/21/25 17:00 04/22/25 06:01 1 STRIP Insulin Human Regular ACHS SC 04/21/25 17:00 04/22/25 06:00 2 UNITS Dextrose 50 ml UD PRN IV 04/21/25 15:30 Pregabalin 50 mg BID PO 04/21/25 22:00 04/22/25 10:26 50 MG Empaglifozin 10 mg DAILY PO 04/22/25 10:00 04/22/25 10:27 10 MG Amiodarone HCl 200 mg DAILY PO 04/22/25 10:00 04/22/25 10:29 200 MG Apixaban 2.5 mg BID PO 04/21/25 22:00 04/22/25 10:27 2.5 MG laboratory and microbiology Laboratory Tests 04/22/25 06:04 Test 04/22/25 06:04 Range/Units Serum Glucose 151 H 74-106 mg/dL Problem List GENERALIZED WEAKNESS HYPERKALEMIA VOLUME DEPLETION PMH; 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
--- NOTE | 2025-04-22 12:18 | DVHDS2 ---
Discharge Summary Date of Admission Apr 20, 2025 at 16:24 Date of Discharge: Apr 22, 2025 Labs/Diagnostic Data: Laboratory Results Test 04/22/25 06:04 04/22/25 05:44 04/21/25 06:47 04/20/25 13:21 White Blood Count 5.5 10^3/uL (4.4-10.8) Red Blood Count 4.31 10^6/uL (4.5-5.90) Hemoglobin 13.9 g/dL (13.5-17.5) Hematocrit 39.3 % (41.0-53.0) Mean Corpuscular Volume 91.1 fL (80.0-100.0) Mean Corpuscular Hemoglobin 32.3 pg (28.0-32.0) Mean Corpuscular Hemoglobin Concent 35.5 g/dL (32.0-36.0) Red Cell Distribution Width 14.3 % (11.8-14.3) Platelet Count 162 10^3/uL (140-450) Mean Platelet Volume 7.8 fL (6.9-10.8) Neutrophils (%) (Auto) 59.8 % (37.0-80.0) Lymphocytes (%) (Auto) 25.3 % (10.0-50.0) Monocytes (%) (Auto) 12.5 % (0.0-12.0) Eosinophils (%) (Auto) 1.9 % (0.0-7.0) Basophils (%) (Auto) 0.5 % (0.0-2.0) Neutrophils # (Auto) 3.3 10 ^3/uL (1.6-8.6) Lymphocytes # (Auto) 1.4 10 ^3/uL (0.4-5.4) Monocytes # (Auto) 0.7 10 ^3/uL (0-1.3) Eosinophils # (Auto) 0.1 10 ^3/uL (0-0.8) Basophils # (Auto) 0 10 ^3/uL (0-0.2) Nucleated Red Blood Cells 0.5 % Sodium Level 139 mmol/L (136-145) Potassium Level 4.0 mmol/L (3.5-5.1) Chloride Level 105 mmol/L (98-107) Carbon Dioxide Level 24 mmol/L (20-31) Anion Gap 10 (5-15) Blood Urea Nitrogen 24 mg/dL (9-23) Creatinine 1.20 mg/dL (0.700-1.30) Glomerular Filtration Rate Calc 59 mL/min (>90) BUN/Creatinine Ratio 20.0 (10.0-20.0) Serum Glucose 151 mg/dL (74-106) Calcium Level 9.6 mg/dL (8.7-10.4) POC Glucose 159 mg/dl (70-106) Total Bilirubin 1.2 mg/dL (0.2-1.0) Aspartate Amino Transferase (AST) 25 U/L (<34) Alanine Aminotransferase (ALT) 28 U/L (7-40) Alkaline Phosphatase 130 U/L (46-116) Total Protein 6.0 g/dL (5.7-8.2) Albumin 3.8 g/dL (3.2-4.8) Free Prostate Specific Antigen 0.21 ng/mL (N/A) Percent Free Prostate Specific Ag 42.0 % (.) Prostate Specific Antigen Total 0.5 ng/mL (0.0-4.0) Troponin I High Sensitivity 16 ng/L (</=54) B-Type Natriuretic Peptide 114.01 pg/mL (0-100) Thyroid Stimulating Hormone (TSH) 4.70 uIU/mL (0.55-4.78) Test 04/20/25 12:00 Urine Color Yellow (Yellow) Urine Clarity Clear (Clear) Urine pH 6.0 (5.0-9.0) Urine Specific [place] 1.025 (1.001-1.035) Urine Protein Negative (Negative) Urine Ketones Negative (Negative) Urine Blood Negative /uL (Negative) Urine Nitrite Negative (Negative) Urine Bilirubin Negative (Negative) Urine Urobilinogen 4 mg/dL (Negative) Urine Leukocyte Esterase Negative /uL (Negative) Urine RBC 1 /hpf (0 - 3) Urine Microscopic WBC 2 /HPF (0-3) Urine Squamous Epithelial Cells Few /hpf (<5) Urine Bacteria None seen /hpf (None Seen) Urine Glucose 4+ mg/dL (Normal) Other Laboratory Tests 04/22/25 06:04 Brief Hx & Hospital Course: SEE DICTATED NOTE Condition at Discharge: Fair Final Diagnosis/Problems List HYPERKALEMIA Discharge Disposition: Home Discharge Instruct/Medications Diet: Cardiac 2g Na,low cholest Activity: No Restrictions, As Tolerated Follow Up/Referral: FU WITH DR DEVYN VICTORIA WITH UROLOGY IN 1 WK Medications: RESUME HOME MEDS [place] WITH LEG BAG Discharge Statement: "Patient was advised to return to the ER or call 911 if any headaches, dizziness, shortness of breath, chest pain, abdominal pain, bleeding, fevers, or worsening of medical condition. Patient was counseled about treatment plan, medications, possible side effects, patientverbalized understanding. All questions were answered to the best of my ability. This discharge took greater then 30 minutes in planning, reviewing documentation, counseling the patient, and discussing with other team members." ASSESSMENT ASSESSMENT Assessment HYPERKALEMIA Date of Service: Apr 22, 2025 Billing Provider: VAL BARRERA MD Common Visit Codes: [id number]/OBS DISCH DAY >30min VAL BARRERA MD Apr 22, 2025 12:18
--- NOTE | 2025-04-22 12:26 | DVHDS ---
DATE OF DISCHARGE: 04/22/2025 HISTORY OF PRESENT ILLNESS: The patient is an 85-year-old gentleman who was admitted with a history of confusion, generalized weakness, and difficulty urinating. He has a history of CVA, CHF, hypertension, thyroid disease, and pacemaker. HOSPITAL COURSE: The patient was seen in Cardiology consult by Dr. Lopez. CT scan showed evidence of cholelithiasis with constipation. The patient was seen in Urology consult by Dr. Price, who recommended Nash catheter with the leg back. The patient's creatinine was elevated at 5.9 that improved to 4.0 at the time of discharge. His creatinine also is 1.2. I reviewed the laboratory data with his grandson. The patient will now be discharged home to resume his home medications and follow up with Urology. He will be discharged with a Nash and leg back. FINAL DIAGNOSES: * Hyperkalemia. * History of AICD. * Atrial fibrillation with secondary hypercoagulable state. * Peripheral vascular disease. * Coronary artery disease with stent. * Chronic systolic heart failure. * BPH with urinary retention. * Hypothyroidism. Time spent in discharge planning and review of plan with the patient and family was 37 minutes. MD BRYAN MillerN/EKT TID: [id number] RECEIPT: [id number]
[2025-04-22 12:38] VITALS: BP 113/65; PULSE 66; RESP 20; TEMP 96.6; O2SAT 93
[2025-04-22 14:13] VITALS: BP 107/73; PULSE 65; RESP 19; TEMP 96.8; O2SAT 93
== END 2025-04-22 15:55 | disposition home or self-care (01) | DRG 641 ==
LOC: ER 11:44 → OVERFLOW 16:24 → TELE-WESTW 16:24
PROVIDERS: ADMIT Internal Medicine; ATTEND Internal Medicine
DX: E87.5 Hyperkalemia (principal); D68.69 Other thrombophilia; I50.22 Chronic systolic (congestive) heart failure; I42.0 Dilated cardiomyopathy; N40.1 Benign prostatic hyperplasia with lower urinary tract symptoms; R33.8 Other retention of urine; E03.9 Hypothyroidism, unspecified; I11.0 Hypertensive heart disease with heart failure; I48.91 Unspecified atrial fibrillation; I25.10 Atherosclerotic heart disease of native coronary artery without angina pectoris; E11.51 Type 2 diabetes mellitus with diabetic peripheral angiopathy without gangrene; K80.20 Calculus of gallbladder without cholecystitis without obstruction; K59.00 Constipation, unspecified; Z79.01 Long term (current) use of anticoagulants; Z79.84 Long term (current) use of oral hypoglycemic drugs; Z79.899 Other long term (current) drug therapy; Z86.73 Personal history of transient ischemic attack (TIA), and cerebral infarction without residual deficits; Z82.49 Family history of ischemic heart disease and other diseases of the circulatory system; Z95.810 Presence of automatic (implantable) cardiac defibrillator; Z95.5 Presence of coronary angioplasty implant and graft; E11.40 Type 2 diabetes mellitus with diabetic neuropathy, unspecified
CPT/HCPCS: 36415; 71045; 74176; 80048; 80053; 81001; 82962; 83880; 84154; 84443; 84484; 85025; 93005; 96361; 96365; G0378; J1815

== ENCOUNTER 2025-09-20 08:07 | Outpatient (CLI) | payer MEDICARE, MEDICAID ==
[2025-09-20 08:54] LABS: Urine Protein, UAD Negative (Negative)
[2025-09-20 09:13] LABS: Alanine Aminotransferase 32 U/L (7-40); Albumin 4.2 g/dL (3.2-4.8); Anion Gap 7 (5-15); BUN/Creatinine Ratio 20.4 (10.0-20.0); Calcium 9.5 mg/dL (8.7-10.4); Carbon Dioxide 30 mmol/L (20-31); Cholesterol 156 mg/dL (< 200); HDL Cholesterol 56 mg/dL (40-59); Sodium 144 mmol/L (136-145); Total Protein 6.9 g/dL (5.7-8.2); Triglycerides 81 mg/dL (< 150)
[2025-09-20 09:22] LABS: Alkaline Phosphatase 171 U/L (46-116); Bilirubin, Direct 0.4 mg/dL (<0.3); Bilirubin, Total 1.2 mg/dL (0.2-1.0); Blood Urea Nitrogen 31 mg/dL (9-23); Chloride 107 mmol/L (98-107); Glucose 176 mg/dL (74-106)
[2025-09-20 09:29] LABS: Potassium 5.8 mmol/L (3.5-5.1)
[2025-09-20 09:33] LABS: Hematocrit 33.3 % (41.0-53.0); Hemoglobin 11.7 g/dL (13.5-17.5); Mean Corpuscular Hemoglobin 34.3 pg (28.0-32.0); Mean Corpuscular Volume 97.3 fL (80.0-100.0); Nucleated Red Blood Cells % 0.2 %
[2025-09-20 10:23] LABS: Prostate Specific Antigen 0.43 ng/mL (0.0-4.0)
[2025-09-20 10:28] LABS: Free T4 (Free Thyroxine) 1.65 ng/dL (0.89-1.76)
== END 2025-09-20 17:00 | disposition home or self-care (01) ==
LOC: LAB 08:07
PROVIDERS: ATTEND Internal Medicine Cardiovascular Disease
DX: C61 Malignant neoplasm of prostate (principal); I11.0 Hypertensive heart disease with heart failure; I50.9 Heart failure, unspecified; E11.9 Type 2 diabetes mellitus without complications; E55.9 Vitamin D deficiency, unspecified; E03.9 Hypothyroidism, unspecified; N39.0 Urinary tract infection, site not specified; D64.9 Anemia, unspecified; R00.2 Palpitations
CPT/HCPCS: 36415; 80048; 80061; 80076; 81003; 83036; 84153; 84403; 84439; 84443; 84480; 85025